=== PATIENT | female | born 1945 | race Two or more races ===

== ENCOUNTER 2019-10-15 12:25 | Emergency (ER) | payer OTHER ==
--- NOTE | 2019-10-15 12:30 | PDOC ---
History of Present Illness - General Chief Complaint: Pain, Acute Stated Complaint: ABD PAIN Time Seen by Provider: 10/15/19 12:27 History Source: Patient, [employer] Used Exam Limitations: Language Barrier (Azeri) - History of Present Illness Initial Comments: 10/15/19 12:29 Heena Fox is a Azeri-speaking 74F with PMH HTN, HLD, GERD, and left renal mass s/p biopsy reported non-cancerous presenting with left flank pain. Patient has been evaluated for a left renal mass over the last five months, was recently biopsied in early September, reports not cancer. Since then has had worse pain than normal. Pain is localized to left flank, worse in the morning, relieved with Tylenol. Today pain is worse than her normal but of the same character, pain rated 9.5/10 and down to 5/10 after Tylenol. Pain normally very responsive to Tylenol over the last few months. Denies chest pain, SOB, cough, fever, chills, nausea, vomiting, urinary sx, or diarrhea. Tolerating PO, eats mostly breakfast foods and coffee. Denies dysuria or hematuria. NKDA. No prior surgeries to her abdomen. Denies alcohol/drugs/tobacco use. Past History - Medical History Allergies/Adverse Reactions: Allergies Allergy/AdvReac Type Severity Reaction Status Date / Time No Known Allergies Allergy Verified 10/15/19 12:32 Home Medications: Ambulatory Orders Amlodipine Besylate [Norvasc -] 10 mg PO DAILY 10/15/19 Aspirin 81 mg PO DAILY 10/15/19 Atorvastatin Ca [Lipitor] 40 mg PO HS 10/15/19 Review of Systems - Review of Systems Able to Perform ROS?: Yes Constitutional: No: Symptoms Reported HEENTM: No: Symptoms Reported Respiratory: No: Symptoms reported Cardiac (ROS): No: Symptoms Reported ABD/GI: No: Constipated, Diarrhea, Nausea, Poor Appetite, Poor Fluid Intake, Vomiting : Yes: Flank Pain. No: Burning, Dysuria, Discharge, Frequency, Hematuria, Incontinence Musculoskeletal: No: Symptoms Reported Integumentary: No: Symptoms Reported Neurological: No: Symptoms reported Endocrine: No: Symptoms Reported Hematologic/Lymphatic: No: Symptoms Reported All Other Systems: Reviewed and Negative *Physical Exam - Physical Exam General Appearance: Yes: Nourished, Appropriately Dressed, Obese, Other (resting comfortably in bed in NAD, sitting up on her own). No: Apparent Distress HEENT: positive: EOMI, PIERRE, Normal Voice, Symmetrical, Pharynx Normal, Hearing Grossly Normal. negative: Scleral Icterus (R), Scleral Icterus (L), Muffled/Hoarse voice, Pharyngeal Erythema, Tonsillar Exudate Neck: positive: Normal Thyroid, Supple. negative: Tender, Rigid, Lymphadenopathy (R), Lymphadenopathy (L) Respiratory/Chest: positive: Lungs Clear, Normal Breath Sounds. negative: Chest Tender, Respiratory Distress, Accessory Muscle Use, Crackles, Rales, Rhonchi, Stridor, Wheezing Cardiovascular: positive: Regular Rhythm, Regular Rate Gastrointestinal/Abdominal: positive: Normal Bowel Sounds, Soft, Protuberent. negative: Tender, Organomegaly, Pulsatile Mass, Distended, Tenderness, Hernia Musculoskeletal: positive: Normal Inspection. negative: CVA Tenderness, CVA Tenderness (R), CVA Tenderness (L), Decreased Range of Motion, Vertebral Tenderness Extremity: positive: Normal Capillary Refill, Normal Inspection, Normal Range of Motion. negative: Tender, Pelvis Stable, Pedal Edema, Swelling, Calf Tenderness Integumentary: positive: Normal Color, Dry, Warm. negative: Diaphoresis Neurologic: positive: Fully Oriented, Alert, Normal Mood/Affect, Normal Response ED Treatment Course - LABORATORY CBC & Chemistry Diagram: 10/15/19 13:05 10/15/19 13:05 Medical Decision Making - Medical Decision Making 10/15/19 12:29 Patient has known history of left renal mass and flank pain responsive to Tylenol, here for worse pain than normal of the same character, relieved with Tylenol but would like evaluation. No other systemic symptoms, VSS, unremarkable physical exam. Mass already evaluated via biopsy and reportedly not malignant, but patient has more pain after biopsy. Evaluating for ACS vs. renal pathology via CMP/CBC/CP/ECG/CXR/UA/UC and renal US for repeat characterization of the mass and for possibly seroma/hematoma. 10/15/19 15:24 Labs notable for: - CBC WNL - CMP WNL - lipase WNL - CP WNL - UA 1+ LE, contaminated, no urinary symptoms, no other markers of infection ECG shows NSR with sinus arrhythmia, HR 66, QTc 413, no ARCADIO/D or TWI. CXR no acute pathology noted. 10/15/19 18:21 Pending US read. 10/15/19 18:36 US read shows morphologically normal kidneys and no evidence of hydronephrosis or acute pathology, with subcutaneous left flank mass without evidence of postbiopsy complication. Patient feeling better and in NAD. No pain medications given in ED, improved with patient's self-taken Tylenol before ED. No worsening pathology requiring admission or further treatment. Stable for discharge home with PMD and urology follow-up. Discharge - Discharge Information Problems reviewed: Yes Clinical Impression/Diagnosis: Left flank pain Condition: Improved Disposition: HOME - Admission No - Follow up/Referral Referrals: Jacoby Negro [Primary Care Provider] - Jose Elias Merida MD [Staff Physician] - - Patient Discharge Instructions Additional Instructions: Hoy te evaluaron por dolor en el costado. Alvarez dolor mejor con Tylenol, as que contine tomndolo keaton se indica en la etiqueta, jeri no ms de 2000 g por da. Alvarez fan y orina no muestran ningn problema. Alvarez ecografa no muestra ningn problema, alvarez masa renal es estable y no hay complicaciones que requieran tratamiento en lashon momento. Owen un seguimiento con alvarez urlogo y alvarez mdico habitual segn lo programado. En casa, si experimenta un empeoramiento del dolor , diarrea, dolor de pecho, fiebre o problemas para orinar, regrese a la bri de emergencias. Today you were evaluated for flank pain. Your pain improved with Tylenol, so please continue to take this as directed on the label, but no more than 2000g per day. Your blood and urine does not show any problems. Your ultrasound does not show any problems, your kidney mass is stable and there are no complications needing treatment at this time. Please follow-up with your urologist and your regular doctor as scheduled. At home, if you experience any worsening pain, diarrhea, chest pain, fevers, or have trouble urinating, please return to the emergency room. - Post Discharge Activity
[2019-10-15 12:35] VITALS: BMI 27.6
[2019-10-15 13:42] LABS: BASO % 1.3 % (0-2.0); EOS % 2.7 % (0-4.5); HEMATOCRIT 41.9 % (32.4-45.2); HEMOGLOBIN 13.4 GM/dL (10.7-15.3); LYMPH % 23.6 % (8-40); MCH 27.9 pg (25.7-33.7); MCHC 32.1 g/dl (32.0-36.0); MEAN CELL VOLUME 86.9 fl (80-96); MEAN PLT VOLUME 8.1 fl (7.5-11.1); MONO % 6.8 % (3.8-10.2); NEUT % 65.6 % (42.8-82.8); PLATELET COUNT 268 K/MM3 (134-434); RBC 4.81 M/mm3 (3.60-5.2); RDW 15.2 % (11.6-15.6); WHITE BLOOD COUNT 10.5 K/mm3 (4.0-10.0)
[2019-10-15 13:44] LABS: EPI CELLS 17 /uL (0-25.1); HYALINE CASTS 0 /uL (0-3.1); PH,URINE 7.5 (5.0-8.0); URINE APPEARANCE CLEAR; URINE BACTERIA 35 /uL (0-1359); URINE BILIRUBIN NEGATIVE (NEGATIVE); URINE COLOR YELLOW; URINE GLUCOSE (UA) NEGATIVE (NEGATIVE); URINE KETONE NEGATIVE (NEGATIVE); URINE LEUK ESTERASE 1+ (NEGATIVE); URINE NITRITE NEGATIVE (NEGATIVE); URINE PROTEIN NEGATIVE (NEGATIVE); URINE RBC 4 /uL (0-23.9); URINE UROBILINOGEN 0.2 mg/dL (0.2-1.0); URINE WBC 30 /uL (0-25.8)
[2019-10-15 14:31] LABS: ALBUMIN 3.8 g/dl (3.4-5.0); ALK PHOS 75 U/L (45-117); ANION GAP 7 MMOL/L (8-16); BILIRUBIN,TOTAL 0.4 mg/dL (0.2-1); BLOOD UREA NITROGEN 17.6 mg/dL (7-18); CALCIUM 8.9 mg/dL (8.5-10.1); CHLORIDE 110 mmol/L (98-107); CO2 26 mmol/L (21-32); CREATININE 0.7 mg/dL (0.55-1.3); LIPASE 164 U/L (73-393); POTASSIUM 4.3 mmol/L (3.5-5.1); SGOT/AST 15 U/L (15-37); SGPT/ALT 33 U/L (13-61); SODIUM 143 mmol/L (136-145); TOT PROT 7.1 g/dl (6.4-8.2)
[2019-10-15 14:37] LABS: GLUCOSE,RANDOM 92 mg/dL (74-106)
--- NOTE | 2019-10-15 15:28 | EKG ---
Test Reason : Blood Pressure : / mmHG Vent. Rate : 066 BPM Atrial Rate : 066 BPM P-R Int : 166 ms QRS Dur : 080 ms QT Int : 394 ms P-R-T Axes : 026 025 029 degrees QTc Int : 413 ms POOR DATA QUALITY, INTERPRETATION MAY BE ADVERSELY AFFECTED NORMAL SINUS RHYTHM WITH SINUS ARRHYTHMIA CANNOT RULE OUT ANTERIOR INFARCT , AGE UNDETERMINED ABNORMAL ECG NO PREVIOUS ECGS AVAILABLE Confirmed by KEYUR CHAN, CHANI ([id number]) on 10/15/2019 3:28:12 PM Referred By: Confirmed By:CHANI BAER MD
--- NOTE | 2019-10-15 15:52 | PDOC ---
Documentation entered by Sharri Ann SCRIBE, acting as scribe for Vinh Sow MD. Vinh Sow MD: This documentation has been prepared by the albinibeSeth Lincy, SCRIBE, under my direction and personally reviewed by me in its entirety. I confirm that the documentation accurately reflects all work, treatment, procedures, and medical decision making performed by me. Attending Attestation - Resident Resident Name: GentrybeverlyJoao - ED Attending Attestation I have performed the following: I have examined & evaluated the patient, The case was reviewed & discussed with the resident, I agree w/resident's findings & plan, Exceptions are as noted - HPI HPI: 10/15/19 13:33 The patient is a 74-year-old female with a past medical history significant for HTN, HLD, GERD, and benign renal mass (biopsy done early September) who presents to the emergency department with left flank pain. She was at her primary care doctor's office and mentioned this flank pain and was referred to the emergency department for evaluation. The patient reports the pain is worse in the morning, with relief noted with Tylenol. Denies abdominal pain. Denies fever, chills, nausea, vomiting, diarrhea, urinary symptoms. Denies sick contact. Denies leg swelling. Patient has appointment with surgery sscheduled in the next week. Allergies: NKA Social history: Denies the use of tobacco, alcohol, or recreational drugs. - Physicial Exam PE: 10/15/19 15:49 GENERAL: The patient is awake, alert, and fully oriented, Nontoxic - in no acute distress. HEAD: Normocephalic, atraumatic. LUNGS: Breath sounds equal, clear to auscultation bilaterally. No wheezes, no rhonchi, no rales. HEART: Regular rate and rhythm, normal S1 and S2 without murmur, rub or gallop. ABDOMEN: Soft, nontender, No guarding, no rebound. No CVA tenderness - Medical Decision Making 10/15/19 15:50 Well-appearing, suspect chronic flank pain. Feeling improved with Tylenol, no CVA tenderness no clinical signs of infection. She has a follow-up appointment with dora 10/15/19 18:45 her US negative for acute pathology pt fees improved will dc with outpatient fu return precautions were discussed Discharge - Discharge Information Problems reviewed: Yes Clinical Impression/Diagnosis: Left flank pain Condition: Improved Disposition: HOME - Follow up/Referral Referrals: Jacoby Negro [Primary Care Provider] - Jose Elias Merida MD [Staff Physician] - - Patient Discharge Instructions Additional Instructions: Hoy te evaluaron por dolor en el costado. Alvarez dolor mejor con Tylenol, as que contine tomndolo keaton se indica en la etiqueta, jeri no ms de 2000 g por da. Alvarez fan y orina no muestran ningn problema. Alvarez ecografa no muestra ningn problema, alvarez masa renal es estable y no hay complicaciones que requieran tratamiento en lashon momento. Owen un seguimiento con alvarez urlogo y alvarez mdico habitual segn lo programado. En casa, si experimenta un empeoramiento del dolor, diarrea, dolor de pecho, fiebre o problemas para orinar, regrese a la rbi de emergencias. Today you were evaluated for flank pain. Your pain improved with Tylenol, so please continue to take this as directed on the label, but no more than 2000g per day. Your blood and urine does not show any problems. Your ultrasound does not show any problems, your kidney mass is stable and there are no complications needing treatment at this time. Please follow-up with your urologist and your regular doctor as scheduled. At home, if you experience any worsening pain, diarrhea, chest pain, fevers, or have trouble urinating, please return to the emergency room. - Post Discharge Activity
[2019-10-15 17:58] VITALS: BP 143/76; PULSE 68; TEMP 98.4
== END 2019-10-15 18:52 | disposition home or self-care (01) ==
LOC: JER 12:25
DX: R10.9 Unspecified abdominal pain (principal)
CPT/HCPCS: 36415; 71045-TC-FY; 76775-TC; 80053; 81003; 82550; 83690; 84484; 85025; 87086; 93005; 93010; 99285-25

== ENCOUNTER 2019-11-24 04:29 | Day surgery (SDC) | payer OTHER ==
[2019-11-23 15:45] VITALS: BMI 30.5
--- OUTSIDE RECORDS SUMMARY | 2019-11-24 04:37 | XMS ---
:1945 Author Organization [facility] Care Team Providers Name Role Phone ALIN CHAN, VASU Unavailable Vicente Huber Unavailable [phone] HERMILA DECKER Unavailable Unavailable Debra Malave Unavailable OYEKOLA HUMAN RESOURCES MANAGER, MOBOLAJI Unavailable OYEKOLA HUMAN RESOURCES MANAGER, MOBOLAJI Unavailable OYEKOLA HUMAN RESOURCES MANAGER, MOBOLAJI Unavailable OYEKOLA HUMAN RESOURCES MANAGER, MOBOLAJI Unavailable AGYEPONG HUMAN RESOURCES MANAGER, ROMEO Unavailable AGYEPONG HUMAN RESOURCES MANAGER, ROMEO Unavailable Betty Lott Unavailable [phone] Crow Lott Unavailable [phone] Crow Lott Unavailable [phone] SIOMARA HUMAN RESOURCES MANAGER Unavailable SIOMARA HUMAN RESOURCES MANAGER Unavailable SIOMARA HUMAN RESOURCES MANAGER Unavailable CLAIRE PUENTES Unavailable Unavailable DAYAN SUTHERLAND Unavailable Unavailable JOSEPH Maria Unavailable Unavailable SIOMARA DOCKERY Unavailable Unavailable ARGENIS JACOB Unavailable Unavailable ROMAIN WAYNE Unavailable KADEN CHAN Unavailable Lorenza Linton MD Unavailable Unavailable Royer, Lorenza MD Unavailable Unavailable Royer, Lorenza MD Unavailable Unavailable Royer, Lorenza MD Unavailable Unavailable Royer, Lorenza MD Unavailable Unavailable Royer, Lorenza MD Unavailable Unavailable Royer, Lorenza MD Unavailable Unavailable Royer, Lorenza MD Unavailable Unavailable Royer, Lorenza MD Unavailable Unavailable Royer, Lorenza MD Unavailable Unavailable Royer, Lorenza MD Unavailable Unavailable Royer, Lorenza MD Unavailable Unavailable Ryoer, Lorenza MD Unavailable Unavailable Royer, Lorenza MD Unavailable Unavailable Royer, Lorenza MD Unavailable Unavailable ZUNASSIGNED Unavailable Unavailable Mello Unavailable ZUNASSIGNED@, Unavailable Unavailable Re-disclosure Warning The records that you are about to access may contain information from federally- assisted alcohol or drug abuse programs. If such information is present, then the following federally mandated warning applies: This information has been disclosed to you from records protected by federal confidentiality rules (42 CFR part 2). The federal rules prohibit you from making any further disclosure of this information unless further disclosure is expressly permitted by the written consent of the person to whom it pertains or as otherwise permitted by 42 CFR part 2. A general authorization for the release of medical or other information is NOT sufficient for this purpose. The Federal rules restrict any use of the information to criminally investigate or prosecute any alcohol or drug abuse patient.The records that you are about to access may contain highly sensitive health information, the redisclosure of which is protected by Article 27-F of the [place] State Public Health law. If you continue you may haveaccess to information: Regarding HIV / AIDS; Provided by facilities licensed or operated by the [facility] Office of Mental Health; or Provided by the [facility] Office for People With Developmental Disabilities. If such information is present, then the following [facility] mandated warning applies: This information has been disclosed to you from confidential records which are protected by state law. State law prohibits you from making any further disclosure of this information without the specific written consent of the person to whom it pertains, or as otherwise permitted by law. Any unauthorized further disclosure in violation of state law may result in a fine or halfway sentence or both. A general authorization for the release of medical or other information is NOT sufficient authorization for further disclosure. Allergies and Adverse Reactions Type Description Substance Reaction Status Data Source(s ) Allergy to No Known Allergies No known GREENW AY ([place] substance allergies [place] ([facility]) Allergy to No Known Allergies No known GREENW AY ([place] substance allergies [place] ([facility]) Allergy to No Known Allergies No known GREENW AY ([place] substance allergies [facility]) Allergy to No Known Allergies No known GREENW AY ([place] substance allergies [facility]) Allergy to No Known Allergies No known GREENW AY ([place] substance allergies [place] ([facility]) Allergy to No Known Allergies No known GREENW AY ([place] substance allergies [place] ([facility]) Allergy to No Known Allergies No known GREENW AY ([place] substance allergies [place] ([facility]) Allergy to No Known Allergies No known GREENW AY ([place] substance allergies [place] ([facility]) Allergy to No Known Allergies No known GREENW AY ([place] substance allergies [place] ([facility]) Allergy to No Known Allergies No known GREENW AY ([place] substance allergies [facility]) Allergy to No Known Allergies No known GREENW AY ([place] substance allergies [place] ([facility]) Allergy to No Known Allergies No known GREENW AY ([place] substance allergies [facility]) Allergy to No Known Allergies No known GREENW AY ([place] substance allergies [place] ([facility]) Allergy to No Known Allergies No known GREENW AY ([place] substance allergies [place] ([facility]) Allergy to No Known Allergies No known GREENW AY ([place] substance allergies [place] ([facility]) Allergy to No Known Allergies No known GREENW AY ([place] substance allergies [place] ([facility]) Allergy to No Known Allergies No known GREENW AY ([place] substance allergies [place] ([facility]) Allergy to No Known Allergies No known GREENW AY ([place] substance allergies [place] ([facility]) Allergy to No Known Allergies No known GREENW AY ([place] substance allergies [place] ([facility]) Allergy to No Known Allergies No known GREENW AY ([place] substance allergies [place] ([facility]) Allergy to No Known Allergies No known GREENW AY ([place] substance allergies [place] ([facility]) Allergy to No Known Allergies No known GREENW AY ([place] substance allergies [place] ([facility]) Allergy to No Known Allergies No known GREENW AY ([place] substance allergies [place] ([facility]) Allergy to No Known Allergies No known GREENW AY ([place] substance allergies [place] ([facility]) Allergy to No Known Allergies No known GREENW AY ([place] substance allergies [facility]) Allergy to No Known Allergies No known GREENW AY ([place] substance allergies [facility]) Allergy to No Known Allergies No known GREENW AY ([place] substance allergies [facility]) Allergy to No Known Allergies No known GREENW AY ([place] substance allergies [facility]) Allergy to No Known Allergies No known GREENW AY ([place] substance allergies [place] ([facility]) Allergy to No Known Allergies No known GREENW AY ([place] substance allergies [facility]) Allergy to No Known Allergies No known GREENW AY ([place] substance allergies [facility]) Allergy to No Known Allergies No known GREENW AY ([place] substance allergies [facility]) Allergy to No Known Allergies No known GREENW AY ([place] substance allergies [facility]) Allergy to No Known Allergies No known GREENW AY ([place] substance allergies [facility]) Allergy to No Known Allergies No known GREENW AY ([place] substance allergies [place] ([facility]) Propensity to Propensity to Propensity to NEXTG EN ([facility] adverse reactions adverse reactions adverse [facility] (disorder) (disorder) reactions Center) (disorder) No Known No Known Allergies No Known eCW1 ( [facility]) Encounters Encounter Providers Location Date Indications Data Source(s ) [facility]: [facility] er dmitter: 10:19:0 ZUNASSIGNEDR 0 AM eferrer: EDT [id number] ZUNASSIGNED@ , Outpatient Attender: [facility] [address] DAYAN GUARDADO 10:08:0 MARTINAdmitt 0 AM er: ROSITA EDT DAYAN GUARDADO KOKOReferr er: ROSITA SUTHERLAND Attender: NEXTGEN ([address] 10:08:0 Medical 0 AM Center) EDT - 020 10:08:0 0 AM EDT Outpatient [address] eCW1 ([address] 12:00:0 Medical 0 AM Practice PC) EDT Outpatient Admitter: [facility] [id number] [address] [place] [address] ZUNASSIGNED@ 12:00:0 ,Referrer: 0 AM [id number] EDT ZUNASSIGNED@ , Outpatient Attender: [facility] HERMILA CASTELLANOS [address] [place] [address] JAMESAdmitte 03:18:0 r: HERMILA CASTELLANOS 0 PM HERMILAReferre EDT r: HERMILA CLEANING OutpatientOFFIC Attender: Family NEXTGEN ( [facility] E/OUTPATIENT [address] VISIT, [facility] 03:18:0 Medical 0 PM Center) EDT - 020 03:18:0 0 PM EDT Outpatient [address] 11:41:0 0 AM EDT Outpatient Attender: [address] SIOMARA 10:53:0 GIFTYAdmitte 0 AM r: SARKIS EDT SIOMARA GIFTYReferre r: SARKIS SIOMARA SARKIS Outpatient [address] 12:00:0 0 AM EDT Outpatient Attender: [facility] HERMILA CASTELLANOS [address] [place] [address] JAMESAdmitte 01:11:0 r: HERMILA CASTELLANOS 0 PM JAMESReferre EDT r: HERMILA CLEANING OutpatientOFFIC Attender: [facility] ( [facility] E/OUTPATIENT [address] VISIT, [facility] 01:11:0 Medical 0 PM Center) EDT - 020 01:11:0 0 PM EDT Outpatient [address] 11:48:0 0 AM EDT Outpatient [address] 12:00:0 0 AM EDT Outpatient<td Attender: Osvaldo RANJEET ID="encounterTy Debra [facility] 020 ([place] Ve rnon peDescriptionID [facility] 12:07:0 Neighborh ood 0">PATIENT Center 0 Health Center) ADVOCACY</td><t EDT - d>Debra Malave</td><td 020 >Osvaldo 11:59:0 Community 0 [facility] EDT Center</td><td> 08/28/2019</td> <td></td> Outpatient<td Attender: Osvaldo RANJEET ID="encounterTy [facility] 020 ([facility] 10:19:0 Neighborh ood 1">PATIENT Center 0 AM Health Center) ADVOCACY</td><t EDT - d>Debra Malave</td><td 020 >Osvaldo 11:59:0 Community 0 [facility] EDT Center</td><td> 08/26/2019</td> <td></td> Outpatient [address] 09:51:0 0 AM EDT Outpatient [address] 12:00:0 0 AM EDT Outpatient<td Attender: Osvaldo RANJEET ID="encounterTy SARKIS [facility] 020 ([place] Ve rnon peDescriptionID [facility] 01:54:0 Neighbo rhood 2">*Phone*</td> Center 0 Health nter) <td>SARKIS EDT - SIOMARA HUMAN RESOURCES MANAGER</td><td>Norman Samir eddie Community 11:59:0 Health [facility] Center</td><td> EDT 08/25/2019</td> <td></td> Outpatient<td Attender: Osvalod RANJEET ID="encounterTy Debra [facility] 020 ([place] Ve rnon peDescriptionID [facility] 03:23:0 Neighborh ood 3">PATIENT Center 0 PM Health Center) ADVOCACY</td><t EDT - d>Debra Malave</td><td 020 >Osvaldo 11:59:0 Community 0 PM Health EDT Center</td><td> 08/06/2019</td> <td></td> Outpatient<td Attender: Osvaldo RANJEET ID="encounterTy SARKIS [facility] 020 ([place] Ve rnon peDescriptionID SIOMARA FNP Health 11:37:0 Neighbo rhood 4">*Phone*</td> Center 0 AM Health Ce nter) <td>SARKIS EDT - SIOMARA HUMAN RESOURCES MANAGER</td><td>Yon 020 [facility] 11:59:0 Health 0 PM Center</td><td> EDT 08/03/2019</td> <td></td> Outpatient<td Attender: Osvaldo RANJEET ID="encounterTy SARKIS [facility] 020 ([place] Ve rnon peDescriptionID SIOMARA FNP Health 11:06:0 Neighbo rhood 5">*No Center 0 AM Health Center) Show*</td><td>G EDT - IFTY SIOMARA HUMAN RESOURCES MANAGER</td><td>Yon 020 [facility] 11:59:0 Health 0 PM Center</td><td> EDT 07/23/2019</td> <td></td> Outpatient<td Attender: Osvaldo RANJEET ID="encounterTy SARKIS [facility] 020 ([place] Ve rnon peDescriptionID SIOMARA [facility] Health 09:00:0 Neighbo rhood 6">WALKINS</td> Center 0 AM Health Ce nter) <td>SARKIS EDT - SIOMARA HUMAN RESOURCES MANAGER</td><td>Yon 020 [facility] 10:05:1 Health 8 AM Center</td><td> EDT 07/20/2019</td> <td></td> Outpatient<td Attender: Osvaldo [place] ID="encounterTy Debra [facility] 020 ([facility] Barbara de la cruz peDescriptionAK [facility] 01:55:0 Neighborh ood 7">PATIENT Center 0 PM Health Center) ADVOCACY</td><t EDT - d>Debra Malave</td><td 020 >[place] 11:59:0 Community 0 PM Health EDT Center</td><td> 07/16/2019</td> <td></td> Outpatient<td Attender: Osvaldo Preventive Med [facility] ID="encounterTy [facility] 020 Standardized Depress ion ([place] peDescriptionAK [facility] 03:00:0 Screening: Positiv e For Neighborhood 8">COMPLETE Center 0 PM SymptomsQuestionnaires H ealth Center) PHYSICAL EDT - Phq-9 Quick Depression EXAM</td><td>GI Assessment FTY SIOMARA 020 PanelOverweightHepatic HUMAN RESOURCES MANAGER</td><td>[place] 02:40:1 CystIntrathoracic Or tulio kers [facility] 8 PM Imaging Health EDT AbnormalityRoutine Center</td><td> Pre-employment Lakia villarreal 05/11/2019</td> ExaminationPreventiv e Med <td><content Standardized Depression ID="encounterDi Screening: Positive For agnosisID8-0">R SymptomsQuestionnair es outine Phq-9 Quick Depression Pre-employment Assessment Screening PanelOverweightHepatic Examination</co CystIntrathoracic Or tulio ntent>, Imaging <content AbnormalityRoutine ID="encounterDi Pre-employment Screagata villarreal agnosisID8-1">I ExaminationPreventiv e Med ntrathoracic Standardized Depression Organ Imaging Screening: Positive Fo r Abnormality</co SymptomsQuestionnair es ntent>, Phq-9 Quick Depression <content Assessment ID="encounterDi PanelOverweightHepat ic agnosisID8-2">H CystIntrathoracic Or tulio epatic Imaging Cyst</content>, AbnormalityRoutine <content Pre-employment Screening ID="encounterDi ExaminationPreventiv e Med agnosisID8-3">O Standardized Depress ion verweight</cont Screening: Positive For ent>, <content SymptomsQuestionnaire s ID="encounterDi Phq-9 Quick Depressi on agnosisID8-4">Q Assessment uestionnaires PanelOverweightHepatic Phq-9 Quick CystIntrathoracic Organ Depression Imaging Assessment AbnormalityRoutine Panel</content> Pre-employment Screagata villarreal , <content ExaminationPreventive Med ID="encounterDi Standardized Depress ion agnosisID8-5">P Screening: Positive For reventive Med SymptomsQuestionnaires Standardized Phq-9 Quick Depression Depression Assessment Screening: PanelOverweightHepatic Positive For CystIntrathoracic Organ Symptoms</gina Imaging nt></td> AbnormalityRoutine Pre-employment Screening ExaminationPreventive Med Standardized Depression Screening: Positive For SymptomsQuestionnaires Phq-9 Quick Depression Assessment PanelOverweightHepatic CystIntrathoracic Organ Imaging AbnormalityRoutine Pre-employment Screening ExaminationPreventive Med Standardized Depression Screening: Positive For SymptomsQuestionnaires Phq-9 Quick Depression Assessment PanelOverweightHepatic CystIntrathoracic Organ Imaging AbnormalityRoutine Pre-employment Screening ExaminationPreventive Med Standardized Depression Screening: Positive For SymptomsQuestionnaires Phq-9 Quick Depression Assessment PanelOverweightHepatic CystIntrathoracic Organ Imaging AbnormalityRoutine Pre-employment Screening ExaminationPreventive Med Standardized Depression Screening: Positive For SymptomsQuestionnaires Phq-9 Quick Depression Assessment PanelOverweightHepatic CystIntrathoracic Organ Imaging AbnormalityRoutine Pre-employment Screening Examination Preventive Med Standardized Depression S creening: Positive For Symptoms Questionnaires Phq-9 Quick Depression As sessment Panel Overweight Hepatic Cyst Intrathoracic Organ Imaging Abnormality Routine Pre-employment Screening Examina tion Preventive Med Standardized Depression S creening: Positive For Symptoms Questionnaires Phq-9 Quick Depression As sessment Panel Overweight Hepatic Cyst Intrathoracic Organ Imaging Abnormality Routine Pre-employment Screening Examina tion Preventive Med Standardized Depression S creening: Positive For Symptoms Questionnaires Phq-9 Quick Depression As sessment Panel Overweight Hepatic Cyst Intrathoracic Organ Imaging Abnormality Routine Pre-employment Screening Examina tion Preventive Med Standardized Depression S creening: Positive For Symptoms Questionnaires Phq-9 Quick Depression As sessment Panel Overweight Hepatic Cyst Intrathoracic Organ Imaging Abnormality Routine Pre-employment Screening Examina tion Preventive Med Standardized Depression S creening: Positive For Symptoms Questionnaires Phq-9 Quick Depression As sessment Panel Overweight Hepatic Cyst Intrathoracic Organ Imaging Abnormality Routine Pre-employment Screening Examina tion Preventive Med Standardized Depression S creening: Positive For Symptoms Questionnaires Phq-9 Quick Depression As sessment Panel Overweight Hepatic Cyst Intrathoracic Organ Imaging Abnormality Routine Pre-employment Screening Examina tion Preventive Med Standardized Depression S creening: Positive For Symptoms Questionnaires Phq-9 Quick Depression As sessment Panel Overweight Hepatic Cyst Intrathoracic Organ Imaging Abnormality Routine Pre-employment Screening Examina tion Preventive Med Standardized Depression S creening: Positive For Symptoms Questionnaires Phq-9 Quick Depression As sessment Panel Overweight Hepatic Cyst Intrathoracic Organ Imaging Abnormality Routine Pre-employment Screening Examina tion Preventive Med Standardized Depression S creening: Positive For Symptoms Questionnaires Phq-9 Quick Depression As sessment Panel Overweight Hepatic Cyst Intrathoracic Organ Imaging Abnormality Routine Pre-employment Screening Examina tion Outpatient<td Attender: Osvaldo 05/11/2019 RANJEET ID="en[id number]">PATIENT [facility] 09:02: 00 AM ([facility]</td><[facility]td><td>[facility] 2019 Health Center</td><td>05/11/2019</td><td></td> 11:59:0 0 PM Center) EDT Outpatient<td Attender: Osvaldo 05/08/2019 RANJEET ID="[id number]">PATIENT [facility] 11:42 :00 AM (Orqis Medical [facility]</td><[facility]</td><td>[facility] 2019 Health Center</td><td>05/08/2019</td><td></td> 11:59:0 0 PM Center) EDT Outpatient<td Attender: Osvaldo 05/04/2019 RANJEET ID="[id number]">*[facility] 10:36 :00 AM ([facility]*</td><td>[facility] EDT - Neighborhood HUMAN RESOURCES MANAGER</td[facility] Center</td><td>05/04/2019</td><td></td> 11:59:0 0 PM Center) EDT Attender: [facility] 04/13/2019 [facility] 04:28:00 PM ([facility] 04/13/2019 Medical 04:28:00 PM Center) EST Outpatient Attender: 04/03/2019 [facility] Elizabeth HERNÁNDEZ 07:58:00 AM [facility] [place] TOMASHERNÁNDEZ 04/03/2019 MAdmitter: 12:26:00 PM WAIALUA [facility]EM[facility] [place] HERNÁNDEZ MReferrer: BETTY Maria Attender: 04/03/2019 [facility] Betty 07:58:00 AM ([facility] 04/03/2019 Medical 07:58:00 AM Center) EST Outpatient Admitter: 04/03/2019 [facility] Elizabeth HERNÁNDEZ 06:53:00 AM [facility] [place] Maria Outpatient<td Attender: Osvaldo 03/25/2019 [place] ID="[id number]">*[facility] 02:41: 00 PM ([place] Update*</td><td>[facility] EST [facility]</td><td>[facility] 03/25/2019 Health Center</td><td>03/25/2019</td><td></td> 11:59:0 0 PM Center) EST Outpatient Attender: 03/25/2019 [facility]DE[facility] 01:31:00 PM [facility] [place] HERNÁNDEZ MAdmitter: BETTY Maria OutpatientOFFICE/OUTPATIENT VISIT, NEW Attender: [facility] 03/25/19 DOMI Hernández 01:31:00 PM ([facility] 03/25/2019 Medical 01:31:00 PM Center) EST Outpatient<td Attender: Osvaldo 03/25/2019 [place] ID="[id number]">PATIENT [facility] 11:45 :00 AM (Kathya Lujan ADVOCACY</td><td>[facility] EST - [facility]</td><td>[facility] 2019 Health Center</td><td>03/25/2019</td><td></td> 11:59:0 0 PM Center) EST Outpatient<td Attender: Osvaldo 03/25/2019 [place] ID="[id number]">LOUANN [facility] 09:15 :00 AM r (Kathya Lujan </td><td>[facility] EST - [facility] HUMAN RESOURCES MANAGER</td><td>[facility] HUMAN RESOURCES MANAGER Center 03/25/2019 Health Center</td><td>03/25/2019</td><td><conten 10:38 :01 AM r Center) t EST a ID="[id number]">Prediabetes l </content>, <content g ID="[id number]">Arthralgia i - Hand</content></td> a - H a n d A r t h r a l g i a - H a n d A r t h r a l g i a - H a n d A r t h r a l g i a - H a n d A r t h r a l g i a - H a n d A r t h r a l g i a - H a n d A r t h r a l g i a - H a n d A r t h r a l g i a - H a n d A r t h r a l g i a - H a n d A r t h r a l g i a - H a n d A r t h r a l g i a - H a n d A r t h r a l g i a - H a n d A r t h r a l g i a - H a n d A r t h r a l g i a - H a n d P r e d i a b e t e s P r e d i a b e t e s P r e d i a b e t e s P r e d i a b e t e s P r e d i a b e t e s P r e d i a b e t e s P r e d i a b e t e s P r e d i a b e t e s P r e d i a b e t e s P r e d i a b e t e s P r e d i a b e t e s P r e d i a b e t e s P r e d i a b e t e s P r e d i a b e t e s Arthralgia - Hand Arthralgia - Hand Arthralgia - Hand Arthralgia - Hand Arthralgia - Hand Arthralgia - Hand Arthralgia - Hand Arthralgia - Hand Arthralgia - Hand Arthralgia - Hand Arthralgia - Hand Arthralgia - Hand Arthralgia - Hand Arthralgia - Hand Prediabetes Prediabetes Prediabetes Prediabetes Prediabetes Prediabetes Prediabetes Prediabetes Prediabetes Prediabetes Prediabetes Prediabetes Prediabetes Prediabetes Outpatient<td Attender: Osvaldo 03/17/2019 RANJEET ID="[id number]">*No [facility] 03:38:00 PM (Kathya Lujan Show*</td><td>[facility]</td><td>[facility] 03/17/19 20 Health Center</td><td>03/17/2019</td><td></td> 11:59:0 0 PM [place]) EST Outpatient<td Attender: Osvaldo 03/16/2019 [place] ID="[id number]">*[facility] 01:06: 00 PM (Kathya Lujan [facility]*</td><td>[facility] HUMAN RESOURCES MANAGER</td><td>[facility] HUMAN RESOURCES MANAGER Center 03/16/2019 Health Center</td><td>03/16/2019</td><td></td> 11:59:0 0 PM Center) EST Outpatient<td Attender: Osvaldo 03/10/2019 [place] ID="[id number]">[facility] 10:56: 00 AM (Kathya Lujan T ADVOCACY</td><td>[facility] EST - Neighborhood [place]</td><td>[facility] 2019 Health Center</td><td>03/10/2019</td><td></td> 11:59:0 0 PM Center) EST Outpatient<td Attender: Ovsaldo 03/10/2019 P [place] ID="[id number]">[facility] 10:30: 00 AM r (Kathya Lujan VISIT</td><td>[facility] EST - e Neighborhood HUMAN RESOURCES MANAGER</td><td>[facility] HUMAN RESOURCES MANAGER Center 03/10/2019 d Health Center</td><td>03/10/2019</td><td><gina 11:50: 59 AM i Center) nt EST a ID="[id number]">Arthralgia b - Shoulder Region</content>, <content e ID="[id number]">Overweight t </content>, <content e ID="[id number]">Prediabete s s</content></td> O v e r w e i g h t A r t h r a l g i a - S h o u l d e r R e g i o n P r e d i a b e t e s O v e r w e i g h t A r t h r a l g i a - S h o u l d e r R e g i o n P r e d i a b e t e s O v e r w e i g h t A r t h r a l g i a - S h o u l d e r R e g i o n P r e d i a b e t e s O v e r w e i g h t A r t h r a l g i a - S h o u l d e r R e g i o n P r e d i a b e t e s O v e r w e i g h t A r t h r a l g i a - S h o u l d e r R e g i o n P r e d i a b e t e s O v e r w e i g h t A r t h r a l g i a - S h o u l d e r R e g i o n P r e d i a b e t e s O v e r w e i g h t A r t h r a l g i a - S h o u l d e r R e g i o n P r e d i a b e t e s O v e r w e i g h t A r t h r a l g i a - S h o u l d e r R e g i o n P r e d i a b e t e s O v e r w e i g h t A r t h r a l g i a - S h o u l d e r R e g i o n P r e d i a b e t e s O v e r w e i g h t A r t h r a l g i a - S h o u l d e r R e g i o n P r e d i a b e t e s O v e r w e i g h t A r t h r a l g i a - S h o u l d e r R e g i o n P r e d i a b e t e s O v e r w e i g h t A r t h r a l g i a - S h o u l d e r R e g i o n P r e d i a b e t e s O v e r w e i g h t A r t h r a l g i a - S h o u l d e r R e g i o n P r e d i a b e t e s O v e r w e i g h t A r t h r a l g i a - S h o u l d e r R e g i o n P r e d i a b e t e s O v e r w e i g h t A r t h r a l g i a - S h o u l d e r R e g i o n P r e d i a b e t e s O v e r w e i g h t A r t h r a l g i a - S h o u l d e r R e g i o n P r e d i a b e t e s O v e r w e i g h t A r t h r a l g i a - S h o u l d e r R e g i o n P r e d i a b e t e s O v e r w e i g h t A r t h r a l g i a - S h o u l d e r R e g i o n P r e d i a b e t e s O v e r w e i g h t A r t h r a l g i a - S h o u l d e r R e g i o n Prediabetes Overweight Arthralgia - Shoulder Region Prediabetes Overweight Arthralgia - Shoulder Region Prediabetes Overweight Arthralgia - Shoulder Region Prediabetes Overweight Arthralgia - Shoulder Region Prediabetes Overweight Arthralgia - Shoulder Region Prediabetes Overweight Arthralgia - Shoulder Region Prediabetes Overweight Arthralgia - Shoulder Region Prediabetes Overweight Arthralgia - Shoulder Region Prediabetes Overweight Arthralgia - Shoulder Region Prediabetes Overweight Arthralgia - Shoulder Region Prediabetes Overweight Arthralgia - Shoulder Region Prediabetes Overweight Arthralgia - Shoulder Region Prediabetes Overweight Arthralgia - Shoulder Region Prediabetes Overweight Arthralgia - Shoulder Region Prediabetes Overweight Arthralgia - Shoulder Region Prediabetes Overweight Arthralgia - Shoulder Region Prediabetes Overweight Arthralgia - Shoulder Region Prediabetes Overweight Arthralgia - Shoulder Region Prediabetes Overweight Arthralgia - Shoulder Region Outpatient Attender: CECIL Cordova 03/10/2019 [facility] 08:52:00 AM Medical DANUTAAdmitter: EST [place] CECIL ARGENIS DANUTAReferrer: OMAR PUENTES Outpatient< Attender: Debra Riley 03/06/2019 [facility] 11:05:00 AM (Kathya Lujan ID[facility]2019 Health [id number]" 11:59:00 PM Center) >PATIENT EST ADVOCACY</t d><td>Debra Malave</td ><td>[facility]</td> <td> 020</td><td ></td> Outpatient< Attender: ROMEO Riley 03/06/2019 OverweightLimb Pain RANJEET td AGYEPONG HUMAN RESOURCES MANAGER [facility] 09:45:00 AM FootLumbagoOverweightL im ([facility] ID="[facility] EST - b Pain Neighborhood [facility] 03/06/2019 FootLumbagoOverweightLim Health [id number]" 09:43:58 AM b Pain Center) >WALKINS</t EST FootLumbagoOverweightLim d><td>[facility]enifer [facility] FootLumbagoOverweightLim [facility]</td><td b Pain >[place] FootLumbagoOverweightLim [facility] b Pain Health FootLumbagoOverweightLim [place]</td> b Pain <td> FootLumbagoOverweightLim 020</td><td b Pain ><content FootLumbagoOverweightLim ID="encount b Pain erDiagnosis FootLumbagoOverweightLim ID20-0">Lum b Pain bago</gina FootLumbagoOverweightLim nt>, b Pain <content FootLumbagoOverweightLim ID="encount b Pain erDiagnosis FootLumbagoOverweightLim ID20-1">Felix b Pain b Pain FootLumbagoOverweightLim Foot</gina b Pain nt>, FootLumbagoOverweightLim <content b Pain ID="encount FootLumbagoOverweightLim erDiagnosis b Pain ID20-2">Ove FootLumbagoOverweightLim rweight</co b Pain ntent></td> FootLumbagoOverweightLim b Pain FootLumbagoOverweightLim b Pain FootLumbagoOverweightLim b Pain FootLumbagoOverweightLim b Pain FootLumbago Overweight Limb Pain Foot [place]umbago Overweight Limb Pain Foot [place] Overweight Limb Pain Foot [place] Overweight Limb Pain Foot [place] Overweight Limb Pain Foot [place] Overweight Limb Pain Foot [place] Overweight Limb Pain Foot [place] Overweight Limb Pain Foot [place] Overweight Limb Pain Foot [place] Overweight Limb Pain Foot [place]umb[place] Overweight Limb Pain Foot [place]umb[place] Overweight Limb Pain Foot [place] Overweight Limb Pain Foot [place]umb[place] Overweight Limb Pain Foot [place]umb[place] Overweight Limb Pain Foot [place]umbago Overweight Limb Pain Foot [place]umbago Overweight Limb Pain Foot [place]umbago Overweight Limb Pain Foot [place]umb[place] Overweight Limb Pain Foot Lumbago Overweight Limb Pain Foot Lumbago Overweight Limb Pain Foot Lumbago Outpatient<td Attender: Osvaldo 03/05/2019 [place] ID="[id number]">*OUTREACH*</td><td>[facility] 01:52:00 PM ([facility]</td><td>[facility]</td><td>03/05/2019</td><td></td> HUMAN RESOURCES MANAGERFormerly [facility] [address] [place] [address] 11:59:00 PM Center) EST Outpatient<td ID="[id number]">Regular Attender : Osvaldo 03/03/2019 [place] Sonogram</td><td>FARZANA ALFONSO MD</td><td>[facility] 09:00:00 AM ([facility]</td><td>03/03/2019</td><td></td> KADEN CHAN [facility] 03/03/2019 Health 10:36:03 AM Center) EST Outpatient<td Attender: Osvaldo 03/02/2019 [place] ID="[id number]">*OUTREACH*</td><td>[facility] 11:36:00 AM ([facility]</td><td>[facility]</td><td>03/02/2019</td><td></td> HUMAN RESOURCES MANAGERFormerly [facility] [address] [place] [address] 11:59:00 PM Center) EST Outpatient<td ID="[id number]">PATIENT Attender : Osvaldo 02/25/2019 RANJEET ADVOCACY</td><[facility]td>[facility] 10:53:00 AM ([facility]</td><td>02/25/2019</td><td></td> [facility] EST - Neighborhood Center 02/25/2019 Health 11:59:00 PM [place]) EST Outpatient<td ID="[id number]">OFFICE Attender: Osvaldo 02/25/2019 A RANJEET VISIT</td><td[facility] HUMAN RESOURCES MANAGER</td><td>[facility] 09:30:00 AM b ([facility]</td><td>02/25/2019</td><td><[facility] EST - Neighborhood ID="[id number]">Abdominal Pain</content></td> HUMAN RESOURCES MANAGER Center 02/25/2019 o Health 10:30:52 AM [facility]) EST i n a l P a i n A b d o m i n a l P a i n A b d o m i n a l P a i n A b d o m i n a l P a i n A b d o m i n a l P a i n A b d o m i n a l P a i n A b d o m i n a l P a i n A b d o m i n a l P a i n A b d o m i n a l P a i n A b d o m i n a l P a i n A b d o m i n a l P a i n A b d o m i n a l P a i n A b d o m i n a l P a i n A b d o m i n a l P a i n A b d o m i n a l P a i n A b d o m i n a l P a i n A b d o m i n a l P a i n A b d o m i n a l P a i n A b d o m i n a l P a i n A b d o m i n a l P a i n A b d o m i n a l P a i n A b d o m i n a l P a i n A b d o m i n a l P a i n A b d o m i n a l P a i n Abdominal Pain Abdominal Pain Abdominal Pain Abdominal Pain Abdominal Pain Abdominal Pain Abdominal Pain Abdominal Pain Abdominal Pain Abdominal Pain Abdominal Pain Abdominal Pain Abdominal Pain Abdominal Pain Abdominal Pain Abdominal Pain Abdominal Pain Abdominal Pain Abdominal Pain Abdominal Pain Abdominal Pain Abdominal Pain Abdominal Pain Abdominal Pain Outpatient<td Attender: Osvaldo 02/03/2019 RANJEET ID="[id number]">PATIENT [facility] 11:29 :00 AM (Kathya Lujan ADVOCACY</td><td>[facility] EST - [facility]</td><td>[facility] 2018 Health Center</td><td>02/03/2019</td><td></td> 11:59:0 0 PM Center) EST Outpatient<td Attender: Osvaldo 02/03/2019 A [place] ID="[id number]">OFFICE [facility] 10:00: 00 AM r (Kathya Lujan VISIT</td><td>[facility] EST - [facility] HUMAN RESOURCES MANAGER</td><td>[facility] HUMAN RESOURCES MANAGER Center 02/03/2019 Health Center</td><td>02/03/2019</td><td><content 10:2 1:33 AM r Center) ID="[id number]">Arthralgia</ EST a content></td> l g i a A r t h r a l g i a A r t h r a l g i a A r t h r a l g i a A r t h r a l g i a A r t h r a l g i a A r t h r a l g i a A r t h r a l g i a A r t h r a l g i a A r t h r a l g i a A r t h r a l g i a A r t h r a l g i a A r t h r a l g i a A r t h r a l g i a A r t h r a l g i a A r t h r a l g i a A r t h r a l g i a A r t h r a l g i a A r t h r a l g i a A r t h r a l g i a A r t h r a l g i a A r t h r a l g i a A r t h r a l g i a A r t h r a l g i a A r t h r a l g i a A r t h r a l g i a A r t h r a l g i a Arthralgia Arthralgia Arthralgia Arthralgia Arthralgia Arthralgia Arthralgia Arthralgia Arthralgia Arthralgia Arthralgia Arthralgia Arthralgia Arthralgia Arthralgia Arthralgia Arthralgia Arthralgia Arthralgia Arthralgia Arthralgia Arthralgia Arthralgia Arthralgia Arthralgia Arthralgia Arthralgia Outpatient<td Attender: Osvaldo 01/27/2019 PrediabetesPrediabetesPrediabetesPrediabetesPrediabetesPrediabetesPrediabetesPre diabetesPrediabetesPrediabetesPrediabetesPrediabetesPrediabetesPrediabetesPredia betesPrediabetesPrediabetesPrediabetesPr ediabetesGastritisFatigueAlopeciaGastritisFatigueA [place] ID="[id number]">WALKINS</td><td>[facility] 12:30:00 PM lopeciaGastritisFatigueAlopeciaGastritisFatigueAlopeciaGastritisFatigueAlopeciaG astritisFatigueAlopeciaGastritisFatigueAlopeciaGastritisFatigueAlopeciaGastritis FatigueAlopeciaGastritisFatigueAlopeciaG astritisFatigueAlopeciaGastritisFatigueAlopeciaGas ([facility] HUMAN RESOURCES MANAGER</td><td>[facility] EST - tritisFatigueAlopeciaGastritisFatigueAlopeciaGastritisFatigueAlopeciaGastritisFa GastritisFatigueAlopeciaPrediabetesGastritisFatigu Neighborhood Center</td><td>01/27/2019</td><td><content HUMAN RESOURCES MANAGER Center 01/27/2019 eAlopeciaPrediabetesGastritisFatigueAlopeciaPrediabetesGastritisFatigueAlopeciaP itisFatigueAlopeciaPrediabetesGastritisFatigueAlop Health ID="[id number]">Prediabetes</content>, 01:51:06 PM eciaPrediabetesGastritisFatigueAlopeciaPrediabetesHyperlipidemiaHyperlipidemiaHy emiaHyperlipidemiaHyperlipidemiaHyperlipidemiaHype [place]) <content EST rlipidemiaHyperlipidemiaHyperlipidemiaHyperlipidemiaHyperlipidemiaHyperlipidemia HyperlipidemiaHyperlipidemiaHyperlipidemiaHyperlipidemiaHyperlipidemiaHyperlipid emiaHyperlipidemiaHyperlipidemiaHyperlipidemiaHyperlipidemiaHypertension ID="[id number]">Alopecia</content>, (systemic)Hypertension (systemic)Hypertension (systemic)Hypertension (systemic)Hypertension (systemic)Hypertension (systemic)Hypertension (systemic)Hypertension (systemic)Hypertension (systemic)Hypertension (systemic)Hypertension <content (systemic)Hyper tension (systemic)Hypertension (systemic)Hypertension (systemic)Hypertension (systemic)Hypertension (systemic)Hypertension (systemic)Hypertension (systemic)Hypertension (systemic)Hypertension (systemic)Hypertension ID="[id number]">Fatigue</content>, (systemic)Hypertension (systemic)Hypertension (systemic)Hypertension (systemic)Hypertension (systemic)Hypertension (systemic)Hypertension (systemic)Hypertension (systemic)Hypertension (systemic)Hypertension (systemic) <content ID="[id number]">Hypertension (systemic)</content>, <content ID="[id number]">Hyperlipidemia</content>, <content ID="[id number]">Gastritis</content></td> Prediabetes Prediabetes Prediabetes Prediabetes Prediabetes Prediabetes Prediabetes Prediabetes Prediabetes Prediabetes Prediabetes Prediabetes Prediabetes Prediabetes Prediabetes Prediabetes Prediabetes Prediabetes Prediabetes Gastritis Fatigue [place] Gastritis Fatigue [place] Gastritis Fatigue [place] Gastritis Fatigue [place] Gastritis Fatigue [place] Gastritis Fatigue [place] Gastritis Fatigue [place] Gastritis Fatigue [place] Gastritis Fatigue [place] Gastritis Fatigue [place] Gastritis Fatigue [place] Gastritis Fatigue [place] Gastritis Fatigue [place] Gastritis Fatigue [place] Gastritis Fatigue [place] Gastritis Fatigue [place] Gastritis Fatigue [place] Gastritis Fatigue [place] Gastritis Fatigue [place] Gastritis Fatigue [place] Prediabetes Gastritis Fatigue [place] Prediabetes Gastritis Fatigue [place] Prediabetes Gastritis Fatigue [place] Prediabetes Gastritis Fatigue [place] Prediabetes Gastritis Fatigue [place] Prediabetes Gastritis Fatigue [place] Prediabetes Gastritis Fatigue [place] Prediabetes Gastritis Fatigue [place] Prediabetes Gastritis Fatigue [place] Prediabetes Gastritis Fatigue [place] Prediabetes Hyperlipidemia Hyperlipidemia Hyperlipidemia Hyperlipidemia Hyperlipidemia Hyperlipidemia Hyperlipidemia Hyperlipidemia Hyperlipidemia Hyperlipidemia Hyperlipidemia Hyperlipidemia Hyperlipidemia Hyperlipidemia Hyperlipidemia Hyperlipidemia Hyperlipidemia Hyperlipidemia Hyperlipidemia Hyperlipidemia Hyperlipidemia Hyperlipidemia Hyperlipidemia Hyperlipidemia Hyperlipidemia Hyperlipidemia Hyperlipidemia Hyperlipidemia Hyperlipidemia Hyperlipidemia Hypertension (systemic) Hypertension (systemic) Hypertension (systemic) Hypertension (systemic) Hypertension (systemic) Hypertension (systemic) Hypertension (systemic) Hypertension (systemic) Hypertension (systemic) Hypertension (systemic) Hypertension (systemic) Hypertension (systemic) Hypertension (systemic) Hypertension (systemic) Hypertension (systemic) Hypertension (systemic) Hypertension (systemic) Hypertension (systemic) Hypertension (systemic) Hypertension (systemic) Hypertension (systemic) Hypertension (systemic) Hypertension (systemic) Hypertension (systemic) Hypertension (systemic) Hypertension (systemic) Hypertension (systemic) Hypertension (systemic) Hypertension (systemic) Hypertension (systemic) Outpatient<td Attender: Osvaldo 01/27/2019 RANJEET ID="[id number]">[facility] 11: 00:00 AM (Kathya Lujan INITIAL VISIT</td><td>[facility]</td><td>[facility] 01/28/20 Health Center</td><td>01/27/2019</td><td></td> 03:27:5 2 PM Center) EST Outpatient<td Attender: Osvaldo 01/27/2019 [place] ID="[id number]">PATIENT [facility] 08:59 :00 AM (Kathya Lujan ADVOCACY</td><td>[facility]</td><td>[facility] 2018 Health Center</td><td>01/27/2019</td><td></td> 11:59:0 0 PM Center) EST Outpatient Attender: Tasha 01/14/2019 [facility] 12:48:00 PM Medical [facility] Center ter: HERMILA CLEANINGRefer rer: HERMILA CLEANING OutpatientOFFICE/OUTPATIENT VISIT, NEW Attender: Family 01/15/20 19 [facility] 12:48:00 PM ([facility] 01/14/2019 Medical 12:48:00 PM Center) [facility] Outpatient 01/14/2019 [facility] 12:37:00 PM Medical [facility] Center Outpatient 01/14/2019 [facility] 12:00:00 AM Medical [facility] Center Outpatient<td Attender: Osvaldo 01/02/2019 [place] ID="[id number]">PATIENT [facility] 04:54 :00 PM ([facility]</td><td>[facility]</td><td>[facility] 2018 Health Center</td><td>01/02/2019</td><td></td> 11:59:0 0 PM Center) [facility] 01/02/2019 [facility] 12:35:00 PM Medical [facility] Center Patient admitted. Outpatient<td ID="[id number]">OFFICE Attender: Osvaldo 01/02/2019 OverweightLimb [place] VISIT</td><td>ROMEO WALTER HUMAN RESOURCES MANAGER</td><td>Osvaldo gibson 11:30:00 AM Pain Left [facility]</td><td>01/02/2019</td><td><content HUMAN RESOURCES MANAGER Center 12/19 Pain Left Health ID="[id number]">Limb Pain Left 12 :11:31 PM [facility]) Leg</content>, <content EST Pain Left ID="[id number]">Overweight</content></td> LegOverweightLimb Pain Left LegOverweightLimb Pain Left LegOverweightLimb Pain Left LegOverweightLimb Pain Left LegOverweightLimb Pain Left LegOverweightLimb Pain Left LegOverweightLimb Pain Left LegOverweightLimb Pain Left LegOverweightLimb Pain Left LegOverweightLimb Pain Left LegOverweightLimb Pain Left LegOverweightLimb Pain Left LegOverweightLimb Pain Left LegOverweightLimb Pain Left LegOverweightLimb Pain Left LegOverweightLimb Pain Left LegOverweightLimb Pain Left LegOverweightLimb Pain Left LegOverweightLimb Pain Left LegOverweightLimb Pain Left LegOverweightLimb Pain Left LegOverweightLimb Pain Left LegOverweightLimb Pain Left LegOverweightLimb Pain Left LegOverweightLimb Pain Left LegOverweightLimb Pain Left LegOverweightLimb Pain Left LegOverweightLimb Pain Left LegOverweightLimb Pain Left LegOverweightLimb Pain Left Leg Overweight Limb Pain Left Leg Overweight Limb Pain Left Leg Overweight Limb Pain Left Leg Overweight Limb Pain Left Leg Overweight Limb Pain Left Leg Overweight Limb Pain Left Leg Overweight Limb Pain Left Leg Overweight Limb Pain Left Leg Overweight Limb Pain Left Leg Overweight Limb Pain Left Leg Overweight Limb Pain Left Leg Overweight Limb Pain Left Leg Overweight Limb Pain Left Leg Overweight Limb Pain Left Leg Overweight Limb Pain Left Leg Overweight Limb Pain Left Leg Overweight Limb Pain Left Leg Overweight Limb Pain Left Leg Overweight Limb Pain Left Leg Overweight Limb Pain Left Leg Overweight Limb Pain Left Leg Overweight Limb Pain Left Leg Overweight Limb Pain Left Leg Overweight Limb Pain Left Leg Overweight Limb Pain Left Leg Overweight Limb Pain Left Leg Overweight Limb Pain Left Leg Overweight Limb Pain Left Leg Overweight Limb Pain Left Leg Overweight Limb Pain Left Leg Overweight Limb Pain Left Leg Overweight Limb Pain Left Leg Overweight Limb Pain Left Leg Outpatient<td Attender: Osvaldo 12/19/2018 Dry Eye [place] ID="[id number]">OFFICE [facility] 12:00:00 PM Syndrome ([place] VISIT</td><td>[facility] EDT - Both Neighborhood MD</td><td>[facility] MD Center 12/19/2018 [facility]</td><td>12/19/2018</td><td><content 05:1 5:52 PM Eye Center) ID="[id number]">[facility] EDT Syndrome Syndrome Both Eyes</content></td> Inder EyesDry Eye Syndrome Both EyesDry Eye Syndrome Both EyesDry Eye Syndrome Both EyesDry Eye Syndrome Both EyesDry Eye Syndrome Both EyesDry Eye Syndrome Both EyesDry Eye Syndrome Both EyesDry Eye Syndrome Both EyesDry Eye Syndrome Both EyesDry Eye Syndrome Both EyesDry Eye Syndrome Both EyesDry Eye Syndrome Both EyesDry Eye Syndrome Both EyesDry Eye Syndrome Both EyesDry Eye Syndrome Both EyesDry Eye Syndrome Both EyesDry Eye Syndrome Both EyesDry Eye Syndrome Both EyesDry Eye Syndrome Both EyesDry Eye Syndrome Both EyesDry Eye Syndrome Both EyesDry Eye Syndrome Both EyesDry Eye Syndrome Both EyesDry Eye Syndrome Both EyesDry Eye Syndrome Both EyesDry Eye Syndrome Both EyesDry Eye Syndrome Both EyesDry Eye Syndrome Both EyesDry Eye Syndrome Both EyesDry Eye Syndrome Both EyesDry Eye Syndrome Both EyesDry Eye Syndrome 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 Outpatient<td Attender: Osvaldo 12/15/2018 Ocular RANJEET ID="[id number]">WALKINS</td><td>[facility] 10:15:00 AM PainOverweightOcular [facility]</td><td>[facility] EDT - PainOverweightOcular [facility] Center</td><td>12/15/2018</td><td><content HUMAN RESOURCES MANAGER Center 12/15/2018 PainOverweightOcular [facility] ID="[id number]">Overweight</content>, 12:48:33 PM PainOverweightOcular Center) <content ID="[id number]">Ocular E DT PainOverweightOcular Pain</content>, <content PainOverwei ghtOcular ID="[id number]">Hypertension PainOverweightOcular (systemic)</content></td> PainOverwe ightOcular PainOverweightOcular PainOverweightOcular PainOverweightOcular PainOverweightOcular PainOverweightOcular PainOverweightOcular PainOverweightOcular PainOverweightOcular PainOverweightOcular PainOverweightOcular PainOverweightOcular PainOverweightOcular PainOverweightOcular PainOverweightOcular PainOverweightOcular PainOverweightOcular PainOverweightOcular PainOverweightOcular PainOverweightOcular PainOverweightOcular PainOverweightOcular PainOverweightOcular PainOverweightOcular PainOverweightOcular PainOverweightOcular PainOverweightOcular PainOverweightHypertens ion (systemic)Hypertension (systemic)Hypertension (systemic)Hypertension (systemic)Hypertension (systemic)Hypertension (systemic)Hypertension (systemic)Hypertension (systemic)Hypertension (systemic)Hypertension (systemic)Hypertension (systemic)Hypertension (systemic)Hypertension (systemic)Hypertension (systemic)Hypertension (systemic)Hypertension (systemic)Hypertension (systemic)Hypertension (systemic)Hypertension (systemic)Hypertension (systemic)Hypertension (systemic)Hypertension (systemic)Hypertension (systemic)Hypertension (systemic)Hypertension (systemic)Hypertension (systemic)Hypertension (systemic)Hypertension (systemic)Hypertension (systemic)Hypertension (systemic)Hypertension (systemic)Hypertension (systemic)Hypertension (systemic)Hypertension (systemic)Hypertension (systemic) Ocular Pain Overweight Ocular Pain Overweight Ocular Pain Overweight Ocular Pain Overweight Ocular Pain Overweight Ocular Pain Overweight Ocular Pain Overweight Ocular Pain Overweight Ocular Pain Overweight Ocular Pain Overweight Ocular Pain Overweight Ocular Pain Overweight Ocular Pain Overweight Ocular Pain Overweight Ocular Pain Overweight Ocular Pain Overweight Ocular Pain Overweight Ocular Pain Overweight Ocular Pain Overweight Ocular Pain Overweight Ocular Pain Overweight Ocular Pain Overweight Ocular Pain Overweight Ocular Pain Overweight Ocular Pain Overweight Ocular Pain Overweight Ocular Pain Overweight Ocular Pain Overweight Ocular Pain Overweight Ocular Pain Overweight Ocular Pain Overweight Ocular Pain Overweight Ocular Pain Overweight Ocular Pain Overweight Ocular Pain Overweight Hypertension (systemic) Hypertension (systemic) Hypertension (systemic) Hypertension (systemic) Hypertension (systemic) Hypertension (systemic) Hypertension (systemic) Hypertension (systemic) Hypertension (systemic) Hypertension (systemic) Hypertension (systemic) Hypertension (systemic) Hypertension (systemic) Hypertension (systemic) Hypertension (systemic) Hypertension (systemic) Hypertension (systemic) Hypertension (systemic) Hypertension (systemic) Hypertension (systemic) Hypertension (systemic) Hypertension (systemic) Hypertension (systemic) Hypertension (systemic) Hypertension (systemic) Hypertension (systemic) Hypertension (systemic) Hypertension (systemic) Hypertension (systemic) Hypertension (systemic) Hypertension (systemic) Hypertension (systemic) Hypertension (systemic) Hypertension (systemic) Hypertension (systemic) Outpatient<td Attender: Osvaldo 12/15/2018 RANJEET ID="[id number]">PATIENT [facility] 08:20 :00 AM (Salcha ADVOCACY</td><td>[facility] EDT - Ne [facility]</td><td>[facility] 2018 Health Center</td><td>12/15/2018</td><td></td> 11:59:0 0 PM Center) EDT Outpatient<td Attender: Osvaldo 12/28/2016 R RANJEET ID="[id number]">OFFICE [facility] 03:00: 00 PM e (Salcha VISIT</td><td>[facility] EST - f [facility] MD</td><td>[facility] Center 12/28/2016 Health Center</td><td>12/28/2016</td><td><content 04:4 4:21 PM a Center) ID="[id number]">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</content></td> i v e E r r o r - H y p e r m e t r o p i a B i l a t e r a l R e f r a c t i v e E r r o r - H y p e r m e t r o p i a B i l a t e r a l R e f r a c t i v e E r r o r - H y p e r m e t r o p i a B i l a t e r a l R e f r a c t i v e E r r o r - H y p e r m e t r o p i a B i l a t e r a l R e f r a c t i v e E r r o r - H y p e r m e t r o p i a B i l a t e r a l R e f r a c t i v e E r r o r - H y p e r m e t r o p i a B i l a t e r a l R e f r a c t i v e E r r o r - H y p e r m e t r o p i a B i l a t e r a l R e f r a c t i v e E r r o r - H y p e r m e t r o p i a B i l a t e r a l R e f r a c t i v e E r r o r - H y p e r m e t r o p i a B i l a t e r a l R e f r a c t i v e E r r o r - H y p e r m e t r o p i a B i l a t e r a l R e f r a c t i v e E r r o r - H y p e r m e t r o p i a B i l a t e r a l R e f r a c t i v e E r r o r - H y p e r m e t r o p i a B i l a t e r a l R e f r a c t i v e E r r o r - H y p e r m e t r o p i a B i l a t e r a l R e f r a c t i v e E r r o r - H y p e r m e t r o p i a B i l a t e r a l R e f r a c t i v e E r r o r - H y p e r m e t r o p i a B i l a t e r a l R e f r a c t i v e E r r o r - H y p e r m e t r o p i a B i l a t e r a l R e f r a c t i v e E r r o r - H y p e r m e t r o p i a B i l a t e r a l R e f r a c t i v e E r r o r - H y p e r m e t r o p i a B i l a t e r a l R e f r a c t i v e E r r o r - H y p e r m e t r o p i a B i l a t e r a l R e f r a c t i v e E r r o r - H y p e r m e t r o p i a B i l a t e r a l R e f r a c t i v e E r r o r - H y p e r m e t r o p i a B i l a t e r a l R e f r a c t i v e E r r o r - H y p e r m e t r o p i a B i l a t e r a l R e f r a c t i v e E r r o r - H y p e r m e t r o p i a B i l a t e r a l R e f r a c t i v e E r r o r - H y p e r m e t r o p i a B i l a t e r a l R e f r a c t i v e E r r o r - H y p e r m e t r o p i a B i l a t e r a l R e f r a c t i v e E r r o r - H y p e r m e t r o p i a B i l a t e r a l R e f r a c t i v e E r r o r - H y p e r m e t r o p i a B i l a t e r a l R e f r a c t i v e E r r o r - H y p e r m e t r o p i a B i l a t e r a l R e f r a c t i v e E r r o r - H y p e r m e t r o p i a B i l a t e r a l R e f r a c t i v e E r r o r - H y p e r m e t r o p i a B i l a t e r a l R e f r a c t i v e E r r o r - H y p e r m e t r o p i a B i l a t e r a l R e f r a c t i v e E r r o r - H y p e r m e t r o p i a B i l a t e r a l R e f r a c t i v e E r r o r - H y p e r m e t r o p i a B i l a t e r a l R e f r a c t i v e E r r o r - H y p e r m e t r o p i a B i l a t e r a l R e f r a c t i v e E r r o r - H y p e r m e t r o p i a B i l a t e r a l Refractive Error - Hypermetropia Bilater al Refractive Error - Hypermetropia Bilater al Refractive Error - Hypermetropia Bilater al Refractive Error - Hypermetropia Bilater al Refractive Error - Hypermetropia Bilater al Refractive Error - Hypermetropia Bilater al Refractive Error - Hypermetropia Bilater al Refractive Error - Hypermetropia Bilater al Refractive Error - Hypermetropia Bilater al Refractive Error - Hypermetropia Bilater al Refractive Error - Hypermetropia Bilater al Refractive Error - Hypermetropia Bilater al Refractive Error - Hypermetropia Bilater al Refractive Error - Hypermetropia Bilater al Refractive Error - Hypermetropia Bilater al Refractive Error - Hypermetropia Bilater al Refractive Error - Hypermetropia Bilater al Refractive Error - Hypermetropia Bilater al Refractive Error - Hypermetropia Bilater al Refractive Error - Hypermetropia Bilater al Refractive Error - Hypermetropia Bilater al Refractive Error - Hypermetropia Bilater al Refractive Error - Hypermetropia Bilater al Refractive Error - Hypermetropia Bilater al Refractive Error - Hypermetropia Bilater al Refractive Error - Hypermetropia Bilater al Refractive Error - Hypermetropia Bilater al Refractive Error - Hypermetropia Bilater al Refractive Error - Hypermetropia Bilater al Refractive Error - Hypermetropia Bilater al Refractive Error - Hypermetropia Bilater al Refractive Error - Hypermetropia Bilater al Refractive Error - Hypermetropia Bilater al Refractive Error - Hypermetropia Bilater al Refractive Error - Hypermetropia Bilater al Outpatient<td Attender: [place] 12/18/2016 [place] ID="[id number]">[facility]</td><td>MARGARITA BRYSON [facility] 11:30:00 AM (Salcha ROMAIN D[facility]</td><td>[facility] EDT - [facility]</td><td>12/18/2016</td><td></td> Center [facility] 11:59:00 PM Center) EDT Medications Medication Brand Start Product Dose Route Administrative Pharmacy [facility] Indications Reaction Description Data Name Date Form Instructions Instructions Source(s) Omeprazole Omepra 08/24/ UNIT 1 active Omeprazo le RANJEET 40 MG zole 2019 ([facility] Delayed 40MG 12:00: Tai Release Oral 00 AM [facility] Oral Capsul EDT od Health Capsule e Center) Omeprazole Delaye 40MG Oral d Capsule Releas Delayed e Release Tylenol 8 Tyleno 08/02/ UNIT 1 complet Mapap GR EENWAY Hour l 8 2019 ed ([facility] Arthritis Hour 12:00: Tai Pain 650MG Arthri 00 AM [facility] Oral Tablet tis EDT od Healt h Extended Pain Center) Release 650MG Oral Tablet Extend ed Releas e Amlodipine amLODI 07/19/ UNIT 1 active amLODIPi ne RANJEET 10 MG / [place] 2019 Besy-Benazep (Carol nt Benazepril Besy-B 12:00: ril HCl Ve rnon hydrochlori enazep 00 AM [facility] de 20 MG ril EDT od Health Oral HCl Center) Capsule 10-20M amLODIPine G Oral Besy-Benaze Capsul pril HCl e 10-20MG Oral Capsule Aspirin 81 Aspiri 07/19/ UNIT 1 active Aspirin RANJEET MG Delayed n 81MG 2019 ([facility] Release Oral 12:00: Tai Oral Tablet Tablet 00 AM [facility] Aspirin Delaye EDT od Health 81MG Oral d Center) Tablet Releas Delayed e Release atorvastati Atorva 07/19/ UNIT 1 active Atorvas tatin RANJEET n 40 MG statin 2020 Calcium ([facility] Oral Tablet Calciu 12:00: Cal on Atorvastati m 40MG 00 AM [facility] n Calcium Oral EDT od Health 40MG Oral Tablet Center) Tablet Omeprazole Omepra 07/19/ UNIT 1 suspend Omepraz ole RANJEET 40 MG zole 2019 ed ([facility] Delayed 40MG 12:00: Tai Release Oral 00 AM [facility] Oral Capsul EDT od Health Capsule e Center) Omeprazole Delaye 40MG Oral d Capsule Releas Delayed e Release Diclofenac Diclof 07/19/ APPLICAT complet Dic lofenac RANJEET Sodium 0.01 enac 2020 ION UNIT ed Sodium (M ount MG/MG Sodium 12:00: Tai Topical Gel 1% 00 AM [facility] Diclofenac Transd EDT od Heal th Sodium 1% ermal Center) Transdermal Gel Gel atorvastati Atorva 03/25/ UNIT 1 suspend Atorva statin RANJEET n 40 MG statin 2019 ed Calcium ([facility] Oral Tablet Calciu 12:00: Cal on Atorvastati m 40MG 00 AM [facility] n Calcium Oral EST od Health 40MG Oral Tablet Center) Tablet Tylenol 8 Tyleno 03/25/ UNIT 1 suspend Mapap GR EENWAY Hour l 8 2019 ed ([facility] Arthritis Hour 12:00: Tai Pain 650MG Arthri 00 AM [facility] Oral Tablet tis EST od [facility]alt [facility] Extended [facility] Center) Release 650MG Oral Tablet Extend ed Releas e Aspirin 81 Aspiri 03/25/ UNIT 1 suspend Aspirin RANJEET MG Delayed n 81MG 2019 ed ([facility] Release Oral 12:00: Tai Oral Tablet Tablet 00 AM [facility] Aspirin Delaye EST od Health 81MG Oral d Center) Tablet Releas Delayed e Release Omeprazole Omepra 03/25/ UNIT 1 suspend Omepraz ole RANJEET 40 MG zole 2019 ed ([facility] Delayed 40MG 12:00: Tai Release Oral 00 AM [facility] Oral Capsul EST od Health Capsule e Center) Omeprazole Delaye 40MG Oral d Capsule Releas Delayed e Release Amlodipine amLODI 03/25/ UNIT 1 suspend amLODIP ine RANJEET 10 MG / [place] 2019 ed Besy-Benazep (Carol nt Benazepril Besy-B 12:00: ril HCl Ve rnon hydrochlori enazep 00 AM [facility] de 20 MG ril EST od Health Oral HCl Center) Capsule 10-20M amLODIPine G Oral Besy-Benaze Capsul pril HCl e 10-20MG Oral Capsule Omeprazole Omepra 02/25/ UNIT 1 suspend Omepraz ole RANJEET 40 MG zole 2019 ed ([facility] Delayed 40MG 12:00: Tai Release Oral 00 AM [facility] Oral Capsul EST od Health Capsule e Center) Omeprazole Delaye 40MG Oral d Capsule Releas Delayed e Release Diclofenac Diclof 02/03/ APPLICAT suspend Dic lofenac RANJEET Sodium 0.01 enac 2019 ION UNIT ed Sodium (M ount MG/MG Sodium 12:00: Tai Topical Gel 1% 00 AM [facility] Diclofenac Transd EST od Heal th Sodium 1% ermal Center) Transdermal Gel Gel Aspirin 81 Aspiri UNIT 1 suspend Aspirin RANJEET MG Delayed n 81MG 2019 ed ([facility] Release Oral 12:00: Tai Oral Tablet Tablet 00 AM [facility] Aspirin Delaye EST od Health 81MG Oral d Center) Tablet Releas Delayed e Release Amlodipine amLODI UNIT 1 suspend amLODIP ine RANJEET 10 MG / [place] 2018 ed Besy-Benazep (Carol nt Benazepril Besy-B 12:00: ril HCl Ve rnon hydrochlori enazep 00 AM Ne[facility] de 20 MG ril EST od Health Oral HCl Center) Capsule 10-20M amLODIPine G Oral Besy-Benaze Capsul pril HCl e 10-20MG Oral Capsule Omeprazole Omepra UNIT 1 suspend Omepraz ole RANJEET 40 MG zole 2018 ed ([facility] Delayed 40MG 12:00: Tai Release Oral 00 AM [facility] Oral Capsul EST od Health Capsule e Center) Omeprazole Delaye 40MG Oral d Capsule Releas Delayed e Release atorvastati Atorva UNIT 1 suspend Atorva statin RANJEET n 40 MG statin 2019 ed Calcium ([facility] Oral Tablet Calciu 12:00: Cal on Atorvastati m 40MG 00 AM [facility] n Calcium Oral EST od Health 40MG Oral Tablet Center) Tablet meloxicam Meloxi 01/02/ UNIT 1 complet Meloxica m RANJEET 15 MG Oral cam 2019 ed ([facility] Tablet 15MG 12:00: Tai Meloxicam Oral 00 AM [facility] 15MG Oral Tablet EST od Healt h Tablet Center) atorvastati Atorva UNIT 1 active Atorvas tatin RANJEET n 40 MG statin 2019 Calcium ([facility] Oral Tablet Calciu 12:00: Cal on Atorvastati m 40MG 00 AM [facility] n Calcium Oral EST od Health 40MG Oral Tablet Center) Tablet Amlodipine amLODI 01/02/ UNIT 1 active amLODIPi ne RANJEET 10 MG / [place] 2019 Besy-Benazep (Carol nt Benazepril Besy-B 12:00: ril HCl Ve rnon hydrochlori enazep 00 AM [facility] de 20 MG ril EST od Health Oral HCl Center) Capsule 10-20M amLODIPine G Oral Besy-Benaze Capsul pril HCl e 10-20MG Oral Capsule Aspirin 81 Aspiri 01/02/ UNIT 1 active Aspirin RANJEET MG Delayed n 81MG 2018 ([facility] Release Oral 12:00: Tai Oral Tablet Tablet 00 AM [facility] Aspirin Delaye EST od Health 81MG Oral d Center) Tablet Releas Delayed e Release Systane Systan 12/19/ APPLICAT 1 complet Systan e RANJEET 0.4-0.3% e 2018 ION UNIT ed ([facility] Ophthalmic 0.4-0. 12:00: Verno n Gel 3% 00 AM [facility] Ophtha EDT od Health lmic Center) Gel Norvasc Norvas 12/15/ UNIT 1 active Norvasc GRE ENWAY 10MG Oral c 10MG 2018 ([facility] Tablet Oral 12:00: Tai Tablet 00 AM [facility] EDT od Health Center) Acetaminoph Acetam 12/18/ UNIT 1 complet Acetam inophe RANJEET en 500 MG inophe 2016 ed n ([facility] Oral Tablet n 12:00: Tai Acetaminoph 500MG 00 AM [facility] en 500MG Oral EDT od Health Oral Tablet Tablet Center ) Amoxicillin Amoxic 12/18/ UNIT 1 complet Amoxic illin RANJEET 875 MG Oral illin 2016 ed ([facility] Tablet 875MG 12:00: Tai Amoxicillin Oral 00 AM [facility] 875MG Oral Tablet EDT od [facility] th Tablet Center) Aspirin 81 Aspiri 1.0 active Aspirin 81 eCW1 MG Delayed n 81 {tabl MG ([facility] Release MG et} [facility]) Acetaminoph UNK 1.0 active Acetaminoph e eCW1 en 500 MG {caps n 500 MG ([facility] t ule[facility]a [facility]} [facility]) Amlodipine Amlodi active Amlodipine eCW1 10 MG / pine Besy-Benazep (Davon nt Benazepril Besy-B ril HCl Sylvester phs hydrochlori enazep 10-20 MG Me dical de 20 MG ril Practice Oral HCl PC) Capsule 10-20 Amlodipine MG Besy-Benaze pril HCl 10-20 MG atorvastati Atorva 1.0 active Atorvasta tin eCW1 n 40 MG statin {tabl Calcium 40 (Sa int Oral Tablet Calciu et} MG Alonzo s Atorvastati m 40 Medical n Calcium MG Practice 40 MG PC) Omeprazole Omepra active Omeprazole eCW1 40 MG zole 40 MG (Saint Delayed 40 MG [facility] Release Medical Oral Practice Capsule PC) Insurance Providers Payer name Policy type Policy ID Covered Covered Policy Plan / Coverage democrat ID democrat's Colon Informati on type relationship to colon MEDICAID [id number] SP [id number] [facility] DUAL [id number] SP [id number] COMPLETE MEDICAID [id number] SP [id number] [facility] D[facility] [id number] SP [id number] COMPLETE [facility] CARE MCARE OPD W [id number] [address] [id number] [facility] O [id number] MCARE OPD [facility] Individual 0 Self 0 Employees ([place]) Policy - [facility] Individual 0 Self 0 Employees ([place]) Policy - [facility] Individual 0 Self 0 Employees ([place]) Policy - [facility] Individual 0 Self 0 Employees ([place]) Policy - [facility] Individual 0 Self 0 Employees ([place]) Policy - [facility] Individual 0 Self 0 Employees ([place]) Policy - [facility] Individual 0 Self 0 Employees ([place]) Policy - [facility] MEDICARE PART B [id number] 1 [id number] [facility] [id number] [facility] Individual 0 Self 0 Employees ([place]) Policy - [facility] Individual 0 Self 0 Employees ([place]) Policy - [facility] Individual 0 Self 0 Employees ([place]) Policy - [facility] Individual 0 Self 0 Employees ([place]) Policy - [facility] Individual 0 Self 0 Employees ([place]) Policy - [facility] Individual 0 Self 0 Employees ([place]) Policy - [facility] Individual 0 Self 0 Employees ([place]) Policy - [facility] MEDICARE [id number] SP [id number] [facility] Individual 0 Self 0 Employees ([place]) Policy - [facility] Individual 0 Self 0 Employees ([place]) Policy - [facility] Individual 0 Self 0 Employees ([place]) Policy - [facility] Individual 0 Self 0 Employees ([place] Policy - [facility] Individual 0 Self 0 Employees ([place]) Policy - [facility] Individual 0 Self 0 Employees ([place]) Policy - [facility] Individual 0 Self 0 Employees ([place] Policy - [facility] Individual 0 Self 0 Employees ([place]) Policy - [facility] Individual 0 Self 0 Employees ([place]) Policy - [facility] Individual 0 Self 0 Employees ([place] Policy - [facility] Individual 0 Self 0 Employees ([place]) Policy - [facility] Individual 0 Self 0 Employees ([place]) Policy - [facility] Individual 0 Self 0 Employees ([place]) Policy - [facility] Individual 0 Self 0 Employees ([place]) Policy - [facility] Individual 0 Self 0 Employees ([place]) Policy - [facility] Individual 0 Self 0 Employees ([place]) Policy - [facility] Individual 0 Self 0 Employees ([place]) Policy - [facility] Individual 0 Self 0 Employees ([place]) Policy - [facility] Individual 0 Self 0 Employees ([place]) Policy - [facility] Individual 0 Self 0 Employees ([place]) Policy - [facility] Dental [facility] [id number] S [id number] Medicare Advantage Medicare-Blue [id number] S [id number] Cross/Blue Shield 25 Medicare United [id number] S [id number] Government 25 Services [facility] [id number] S [id number] [facility] Dual Complete Dental [facility] [id number] S [id number] Community MKD Plan Dental March Vision [id number] S [id number] 58 Medicaid [facility] Optum [id number] S [id number] Behavioral Health Medicaid [id number] S [id number] Regular Clinic Visit [facility] [id number] S [id number] MKD Community Plan [facility] Individual 0 Self 0 Employees ([place]) Policy - [facility] Problems, Conditions, and Diagnoses Code Display Name Description Problem Type Effective Data Sour ce(s) Dates I10 65606012 Essential Problem 11/09/2019 eCW1 ([facility] hypertension 12:00:00 AM [facility]) [id number] Tendinitis Tendonitis Problem 07/24/2019 RANJEET (Moun t (disorder) 12:00:00 AM [facility]) [id number] Tendinitis Tendonitis Problem 07/24/2019 RANJEET (Moun t (disorder) 12:00:00 AM [facility]) [id number] Tendinitis Tendonitis Problem 07/24/2019 RANJEET (Moun t (disorder) 12:00:00 AM [facility]) 15687385 Tendinitis Tendonitis Problem 07/24/2019 RANJEET (Moun t (disorder) 12:00:00 AM [facility]) 51524074 Tendinitis Tendonitis Problem 07/24/2019 RANJEET (Moun t (disorder) 12:00:00 AM [facility]) 03215584 Tendinitis Tendonitis Problem 07/20/2019 RANJEET (Moun t (disorder) 12:00:00 AM [facility]) 71830671 Tendinitis Tendonitis Problem 06/19/2019 RANJEET (Moun t (disorder) 12:00:00 AM [facility]) 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 0 RANJEET ([place] nodule nodule 12:00:00 AM [facility]) [id number] Liver cyst Hepatic Cyst Problem 05/11/2019 RANJEET (Mo unt (disorder) 12:00:00 AM [facility]) 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 0 RANJEET ([place] nodule nodule 12:00:00 AM [facility]) [id number] Liver cyst Hepatic Cyst Problem 05/11/2019 RANJEET (Mo unt (disorder) 12:00:00 AM [facility]) 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 0 RANJEET ([place] nodule nodule 12:00:00 AM [facility]) [id number] Liver cyst Hepatic Cyst Problem 05/11/2019 RANJEET (Mo unt (disorder) 12:00:00 AM [facility]) 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 0 RANJEET ([place] nodule nodule 12:00:00 AM [facility]) 16056384 Liver cyst Hepatic Cyst Problem 05/11/2019 RANJEET (Mo unt (disorder) 12:00:00 AM [facility]) 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 0 RANJEET ([place] nodule nodule 12:00:00 AM [facility]) 54875872 Liver cyst Hepatic Cyst Problem 05/11/2019 RANJEET (Mo unt (disorder) 12:00:00 AM [facility]) 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 0 RANJEET ([place] nodule nodule 12:00:00 AM [facility]) 53912536 Liver cyst Hepatic Cyst Problem 05/11/2019 RANJEET (Mo unt (disorder) 12:00:00 AM [facility]) 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 0 RANJEET ([place] nodule nodule 12:00:00 AM [facility]) 06051699 Liver cyst Hepatic Cyst Problem 05/11/2019 RANJEET (Mo unt (disorder) 12:00:00 AM [facility]) 28224139 Tendinitis Tendonitis Problem 05/11/2019 RANJEET (Moun t (disorder) 12:00:00 AM [facility]) 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 0 RANJEET ([place] nodule nodule 12:00:00 AM [facility]) [id number] Liver cyst Hepatic Cyst Problem 05/11/2019 RANJEET (Mo unt (disorder) 12:00:00 AM [facility]) 99655853 Tendinitis Tendonitis Problem 05/11/2019 RANJEET (Moun t (disorder) 12:00:00 AM [facility]) 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 03/23/202 0 RANJEET ([place] nodule nodule 12:00:00 AM [facility]) [id number] Liver cyst Hepatic Cyst Problem 05/11/2019 RANJEET (Mo unt (disorder) 12:00:00 AM [facility]) 07932222 Tendinitis Tendonitis Problem 05/04/2019 RANJEET (Moun t (disorder) 12:00:00 AM [facility]) 86070066 Tendinitis Tendonitis Problem 05/04/2019 RANJEET (Moun t (disorder) 12:00:00 AM [facility]) [id number] 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/2019 [place] ([place] kidney (disorder) 12:00:00 AM [facility]) 119273560 Steatosis of liver Fatty Liver Problem 03/25/[address] ([place] (disorder) 12:00:00 AM [facility]) [id number] 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/2019 [place] ([place] kidney (disorder) 12:00:00 AM [facility]) [id number] Steatosis of liver Fatty Liver Problem 03/25/[address] ([place] (disorder) 12:00:00 AM [facility]) [id number] 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/2019 [place] ([place] kidney (disorder) 12:00:00 AM [facility]) 201885666 Steatosis of liver Fatty Liver Problem 03/25/[address] ([place] (disorder) 12:00:00 AM [facility]) [id number] 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/2019 [place] ([place] kidney (disorder) 12:00:00 AM [facility]) 800124342 Steatosis of liver Fatty Liver Problem 03/25/[address] ([place] (disorder) 12:00:00 AM [facility]) [id number] 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/2019 [place] ([place] kidney (disorder) 12:00:00 AM [facility]) 199096805 Steatosis of liver Fatty Liver Problem 03/25/[address] ([place] (disorder) 12:00:00 AM [facility]) [id number] 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/2019 [place] ([place] kidney (disorder) 12:00:00 AM [facility]) [id number] Steatosis of liver Fatty Liver Problem 03/25/[address] ([place] (disorder) 12:00:00 AM [facility]) [id number] 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/2019 [place] ([place] kidney (disorder) 12:00:00 AM [facility]) [id number] Steatosis of liver Fatty Liver Problem 03/25/[address] ([place] (disorder) 12:00:00 AM [facility] [facility]) [id number] 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/2019 [place] ([place] (disorder) 12:00:00 AM [facility]) [id number] Steatosis of liver Fatty Liver Problem 03/25/[address] ([place] (disorder) 12:00:00 AM [facility]) [id number] 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/2019 [place] ([place] ([place]order) 12:00:00 AM [facility]) [id number] Steatosis of liver Fatty Liver Problem 03/25/[address] ([place] (disorder) 12:00:00 AM [facility]) [id number] 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/2019 [place] ([place]order) 12:00:00 AM [facility]) [id number] Steatosis of liver Fatty Liver Problem 03/25/[address] ([place] (disorder) 12:00:00 AM [facility]) [id number] 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/2019 [place] ([place] ([place]order) 12:00:00 AM [facility]) [id number] Steatosis of liver Fatty Liver Problem 03/25/[address] ([place] (disorder) 12:00:00 AM [facility]) [id number] Tendinitis Tendonitis Problem 03/25/2019 [place] ([place] (disorder) 12:00:00 AM [facility]) [id number] 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/2019 [place] ([place]order) 12:00:00 AM [facility]) [id number] Steatosis of liver Fatty Liver Problem 03/25/[address] ([place] (disorder) 12:00:00 AM [facility]) [id number] Tendinitis Tendonitis Problem 03/25/2019 [place] ([place] (disorder) 12:00:00 AM [facility]) [id number] 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/2019 [place] ([place]order) 12:00:00 AM [facility]) [id number] Steatosis of liver Fatty Liver Problem 03/25/[address] ([place] (disorder) 12:00:00 AM [facility]) [id number] Tendinitis Tendonitis Problem 03/25/2019 [place] ([place] (disorder) 12:00:00 AM [facility]) [id number] 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/2019 [place] ([place]order) 12:00:00 AM [facility]) [id number] Steatosis of liver Fatty Liver Problem 03/25/[address] ([place] (disorder) 12:00:00 AM [facility]) [id number] Tendinitis Tendonitis Problem 03/16/2019 [place] ([place] ([place]order) 12:00:00 AM [facility]) [id number] Impaired glucose Prediabetes Problem 03/10/2019 [facility] ([place] tolerance 12:00:00 AM [place] (disorder) [facility]) [id number] Impaired glucose Prediabetes Problem 03/10/2019 [facility] ([place] tolerance 12:00:00 AM [place] (disorder) [facility]) [id number] Impaired glucose Prediabetes Problem 03/10/2019 [place] ([place] tolerance 12:00:00 AM [place] (disorder) [facility]) [id number] Impaired glucose Prediabetes Problem 03/10/2019 [place] ([place] tolerance 12:00:00 AM [place] (disorder) [facility]) [id number] Impaired glucose Prediabetes Problem 03/10/2019 [place] ([place] tolerance 12:00:00 AM [place] (disorder) [facility]) [id number] Impaired glucose Prediabetes Problem 03/10/2019 [place] ([place] tolerance 12:00:00 AM [place] (disorder) [facility]) [id number] Tendinitis Tendonitis Problem 03/10/2019 [place] ([place] (disorder) 12:00:00 AM [facility]) [id number] Impaired glucose Prediabetes Problem 03/10/2019 [place] ([place] tolerance 12:00:00 AM [place] (disorder) [facility]) [id number] Tendinitis Tendonitis Problem 03/10/2019 [place] ([place] (disorder) 12:00:00 AM [facility]) [id number] Impaired glucose Prediabetes Problem 03/10/2019 [place] ([place] tolerance 12:00:00 AM [place] (disorder) [facility]) [id number] Tendinitis Tendonitis Problem 03/10/2019 [place] ([place] (disorder) 12:00:00 AM [facility]) [id number] Impaired glucose Prediabetes Problem 03/10/2019 [place] ([place] tolerance 12:00:00 AM [place] (disorder) [facility]) [id number] Tendinitis Tendonitis Problem 03/10/2019 [place] ([place] (disorder) 12:00:00 AM [facility]) [id number] Impaired glucose Prediabetes Problem 03/10/2019 [place] ([place] tolerance 12:00:00 AM [place] (disorder) [facility]) [id number] Impaired glucose Prediabetes Problem 03/10/2019 [place] ([place] tolerance 12:00:00 AM [place] (disorder) [facility]) [id number] Impaired glucose Prediabetes Problem 03/10/2019 [place] ([place] tolerance 12:00:00 AM [place] (disorder) [facility]) [id number] Impaired glucose Prediabetes Problem 03/10/2019 [place] ([place] tolerance 12:00:00 AM [place] (disorder) [facility]) [id number] Impaired glucose Prediabetes Problem 03/10/2019 [place] ([place] tolerance 12:00:00 AM [place] (disorder) [facility]) [id number] Impaired glucose Prediabetes Problem 03/10/2019 [place] ([place] tolerance 12:00:00 AM [place] (disorder) [facility]) [id number] Impaired glucose Prediabetes Problem 03/10/2019 [place] ([place] tolerance 12:00:00 AM [place] (disorder) [facility]) [id number] Impaired glucose Prediabetes Problem 03/10/2019 [place] ([place] tolerance 12:00:00 AM [place] (disorder) [facility]) [id number] Impaired glucose Prediabetes Problem 03/10/2019 [facility] ([place] tolerance 12:00:00 AM [place] (disorder) [facility]) [id number] Impaired glucose Prediabetes Problem 03/10/2019 [facility] ([place] tolerance 12:00:00 AM [place] (disorder) [facility]) [id number] Tendinitis Tendonitis Problem 03/06/2019 [place] ([place] (disorder) 12:00:00 AM [facility]) [id number] Tendinitis Tendonitis Problem 03/06/2019 [place] ([place] (disorder) 12:00:00 AM [facility]) [id number] Tendinitis Tendonitis Problem 03/05/2019 [place] ([place] (disorder) 12:00:00 AM [facility]) [id number] Tendinitis Tendonitis Problem 03/02/2019 [place] ([place] (disorder) 12:00:00 AM [facility]) [id number] Tendinitis Tendonitis Problem 02/25/2019 [place] ([place] (disorder) 12:00:00 AM [facility]) [id number] Tendinitis Tendonitis Problem 02/03/2019 [place] ([place] (disorder) 12:00:00 AM [facility]) [id number] Tendinitis Tendonitis Problem 02/03/2019 [place] ([place] (disorder) 12:00:00 AM [facility]) [id number] Tendinitis Tendonitis Problem 02/03/2019 [place] ([place] (disorder) 12:00:00 AM [facility]) [id number] Tendinitis Tendonitis Problem 01/27/2019 [place] ([place] (disorder) 12:00:00 AM [facility]) [id number] Tendinitis Tendonitis Problem 01/27/2019 [place] ([place] (disorder) 12:00:00 AM [facility]) [id number] Tendinitis Tendonitis Problem 01/27/2019 [place] ([place] (disorder) 12:00:00 AM [facility]) [id number] Tendinitis Tendonitis Problem 01/06/2019 [place] ([place] (disorder) 12:00:00 AM [facility]) [id number] Tendinitis Tendonitis Problem 01/06/2019 [place] ([place] (disorder) 12:00:00 AM [facility]) [id number] Tendinitis Tendonitis Problem 01/02/2019 [place] ([place] (disorder) 12:00:00 AM [facility]) [id number] Hyperlipidemia Hyperlipidemia Problem 03/20/2017 [place] ([place] (disorder) 12:00:00 AM [facility]) [id number] Hyperlipidemia Hyperlipidemia Problem 03/20/2017 [place] ([place] (disorder) 12:00:00 AM [facility]) [id number] Hyperlipidemia Hyperlipidemia Problem 03/20/2017 [place] ([place] (disorder) 12:00:00 AM [facility]) [id number] Hyperlipidemia Hyperlipidemia Problem 03/20/2017 [place] ([place] (disorder) 12:00:00 AM [facility]) [id number] Hyperlipidemia Hyperlipidemia Problem 03/20/2017 [place] ([place] (disorder) 12:00:00 [facility]) [id number] Hyperlipidemia Hyperlipidemia Problem 03/20/2017 [place] ([place] (disorder) 12:00:00 AM [facility]) [id number] Hyperlipidemia Hyperlipidemia Problem 03/20/2017 [place] ([place] (disorder) 12:00:00 [facility]) [id number] Hyperlipidemia Hyperlipidemia Problem 03/20/2017 [place] ([place] (disorder) 12:00:00 AM [facility]) [id number] Hyperlipidemia Hyperlipidemia Problem 03/20/2017 [place] ([place] (disorder) 12:00:00 AM [facility]) [id number] Hyperlipidemia Hyperlipidemia Problem 03/20/2017 [place] ([place] (disorder) 12:00:00 AM [facility]) 73574053 Hyperlipidemia Hyperlipidemia Problem 03/20/2017 [place] ([place] (disorder) 12:00:00 AM [facility]) [id number] Hyperlipidemia Hyperlipidemia Problem 03/20/2017 [place] ([place] (disorder) 12:00:00 AM [facility]) [id number] Hyperlipidemia Hyperlipidemia Problem 03/20/2017 [place] ([place] (disorder) 12:00:00 AM [facility]) [id number] Hyperlipidemia Hyperlipidemia Problem 03/20/2017 [place] ([place] (disorder) 12:00:00 AM [facility]) [id number] Hyperlipidemia Hyperlipidemia Problem 03/20/2017 [place] ([place] (disorder) 12:00:00 AM [facility]) [id number] Hyperlipidemia Hyperlipidemia Problem 03/20/2017 [place] ([place] (disorder) 12:00:00 AM [facility]) [id number] Hyperlipidemia Hyperlipidemia Problem 03/20/2017 [place] ([place] (disorder) 12:00:00 AM [facility]) [id number] Hyperlipidemia Hyperlipidemia Problem 03/20/2017 [place] ([place] (disorder) 12:00:00 AM [facility]) 17742137 Hyperlipidemia Hyperlipidemia Problem 03/20/2017 [place] ([place] (disorder) 12:00:00 AM [facility]) [id number] Hyperlipidemia Hyperlipidemia Problem 03/20/2017 [place] ([place] (disorder) 12:00:00 AM [facility]) [id number] Hyperlipidemia Hyperlipidemia Problem 03/20/2017 [place] ([place] (disorder) 12:00:00 AM [facility]) [id number] Hyperlipidemia Hyperlipidemia Problem 03/20/2017 [place] ([place] (disorder) 12:00:00 [facility]) [id number] Hyperlipidemia Hyperlipidemia Problem 03/20/2017 [place] ([place] (disorder) 12:00:00 AM [facility]) [id number] Hyperlipidemia Hyperlipidemia Problem 03/20/2017 [place] ([place] (disorder) 12:00:00 AM [facility]) 63131894 Hyperlipidemia Hyperlipidemia Problem 03/20/2017 [place] ([place] (disorder) 12:00:00 AM [facility]) [id number] Hyperlipidemia Hyperlipidemia Problem 03/20/2017 [place] ([place] (disorder) 12:00:00 AM [facility]) 40997490 Hyperlipidemia Hyperlipidemia Problem 03/20/2017 [place] ([place] (disorder) 12:00:00 AM [facility]) [id number] Hyperlipidemia Hyperlipidemia Problem 03/20/2017 [place] ([place] (disorder) 12:00:00 AM [facility]) [id number] Hyperlipidemia Hyperlipidemia Problem 03/20/2017 [place] ([place] (disorder) 12:00:00 AM [facility]) [id number] Hyperlipidemia Hyperlipidemia Problem 03/20/2017 [place] ([place] (disorder) 12:00:00 AM [facility]) 65238695 Hyperlipidemia Hyperlipidemia Problem 03/20/2017 [place] ([place] (disorder) 12:00:00 AM [facility]) [id number] Hyperlipidemia Hyperlipidemia Problem 03/20/2017 [place] ([place] (disorder) 12:00:00 AM [facility]) [id number] Hyperlipidemia Hyperlipidemia Problem 03/20/2017 [place] ([place] (disorder) 12:00:00 AM [facility]) 15032509 Hyperlipidemia Hyperlipidemia Problem 03/20/2017 [place] ([place] (disorder) 12:00:00 AM [facility]) [id number] Hyperlipidemia Hyperlipidemia Problem 03/20/2017 [place] ([place] (disorder) 12:00:00 AM [facility]) [id number] Hypertensive Hypertension Problem 02/17/2003 [place] ( [place] disorder, systemic (systemic) 12:00:00 AM [place] [facility] (disorder) [facility] [place]) 46280746 Hypertensive Hypertension Problem 02/17/2003 [place] ( [place] disorder, systemic (systemic) 12:00:00 AM [place] [facility] (disorder) [facility] [place]) 50085421 Hypertensive Hypertension Problem 02/17/2003 [place] ( [place] disorder, systemic (systemic) 12:00:00 AM [place] [facility]order[facility]) 54623564 Hypertensive Hypertension Problem 02/17/2003 [place] ( [place] disorder, systemic (systemic) 12:00:00 AM [place] [facility]order[facility]) [id number] Hypertensive Hypertension Problem 02/17/2003 [place] ( [place] disorder, systemic (systemic) 12:00:00 AM [place] [facility]order[facility]) 69738745 Hypertensive Hypertension Problem 02/17/2003 [place] ( [place] disorder, systemic (systemic) 12:00:00 AM [place] [facility]order[facility]) [id number] Hypertensive Hypertension Problem 02/17/2003 [place] ( [place] disorder, systemic (systemic) 12:00:00 AM [place] [facility]order[facility]) [id number] Hypertensive Hypertension Problem 02/17/2003 [place] ( [place] disorder, systemic (systemic) 12:00:00 AM [place] [facility]order[facility]) [id number] Hypertensive Hypertension Problem 02/17/2003 [place] ( [place] disorder, systemic (systemic) 12:00:00 AM [place] [facility]) 11365906 Hypertensive Hypertension Problem 02/17/2003 [place] ( [place] disorder, systemic (systemic) 12:00:00 AM [place] [facility]order[facility]) 58388292 Hypertensive Hypertension Problem 02/17/2003 [place] ( [place] disorder, systemic (systemic) 12:00:00 AM [place] [facility]order[facility]) 08872280 Hypertensive Hypertension Problem 02/17/2003 [place] ( [place] disorder, systemic (systemic) 12:00:00 AM [place] [facility]) [id number] Hypertensive Hypertension Problem 02/17/2003 [place] ( [place] disorder, systemic (systemic) 12:00:00 AM [place] [facility]order[facility]) [id number] Hypertensive Hypertension Problem 02/17/2003 [place] ( [place] disorder, systemic (systemic) 12:00:00 AM [place] [facility]) 39499403 Hypertensive Hypertension Problem 02/17/2003 [place] ( [place] disorder, systemic (systemic) 12:00:00 AM [place] [facility]) [id number] Hypertensive Hypertension Problem 02/17/2003 [place] ( [place] disorder, systemic (systemic) 12:00:00 AM [place] [facility]order[facility]) [id number] Hypertensive Hypertension Problem 02/17/2003 [place] ( [place] disorder, systemic (systemic) 12:00:00 AM [place] [facility]order[facility]) 81234963 Hypertensive Hypertension Problem 02/17/2003 [place] ( [place] disorder, systemic (systemic) 12:00:00 AM [place] [facility]order[facility]) 46898794 Hypertensive Hypertension Problem 02/17/2003 [place] ( [place] disorder, systemic (systemic) 12:00:00 AM [place] [facility]order[facility]) 18550150 Hypertensive Hypertension Problem 02/17/2003 [place] ( [place] disorder, systemic (systemic) 12:00:00 AM [place] [facility]order[facility]) 40221499 Hypertensive Hypertension Problem 02/17/2003 [place] ( [place] disorder, systemic (systemic) 12:00:00 AM [place] [facility]order[facility]) [id number] Hypertensive Hypertension Problem 02/17/2003 [place] ( [place] disorder, systemic (systemic) 12:00:00 AM [place] [facility]order[facility]) 43588034 Hypertensive Hypertension Problem 02/17/2003 [place] ( [place] disorder, systemic (systemic) 12:00:00 AM [place] [facility]order[facility]) 68814222 Hypertensive Hypertension Problem 02/17/2003 [place] ( [place] disorder, systemic (systemic) 12:00:00 AM [place] [facility]order[facility]) 06225535 Hypertensive Hypertension Problem 02/17/2003 [place] ( [place] disorder, systemic (systemic) 12:00:00 AM [place] [facility]order[facility]) 59332421 Hypertensive Hypertension Problem 02/17/2003 [place] ( [place] disorder, systemic (systemic) 12:00:00 AM [place] [facility]order[facility]) 72887229 Hypertensive Hypertension Problem 02/17/2003 [place] ( [place] disorder, systemic (systemic) 12:00:00 AM [place] [facility]order[facility]) 79192298 Hypertensive Hypertension Problem 02/17/2003 [place] ( [place] disorder, systemic (systemic) 12:00:00 AM [place] [facility]order[facility]) 97757147 Hypertensive Hypertension Problem 02/17/2003 [place] ( [place] disorder, systemic (systemic) 12:00:00 AM [place] [facility]order[facility]) 00985740 Hypertensive Hypertension Problem 02/17/2003 [place] ( [place] disorder, systemic (systemic) 12:00:00 AM [place] [facility]order[facility]) 94251962 Hypertensive Hypertension Problem 02/17/2003 [place] ( [place] disorder, systemic (systemic) 12:00:00 AM [place] [facility]order[facility]) 60809235 Hypertensive Hypertension Problem 02/17/2003 [place] ( [place] disorder, systemic (systemic) 12:00:00 AM [place] [facility]order[facility]) [id number] Hypertensive Hypertension Problem 02/17/2003 [place] ( [facility] disorder, systemic (systemic) 12:00:00 AM [place] [facility] (disorder) [facility] [place]) [id number] Hypertensive Hypertension Problem 02/17/2003 [place] ( [facility] disorder, systemic (systemic) 12:00:00 AM [place] [facility] (disorder) [facility]) [id number] Hypertensive Hypertension Problem 02/17/2003 [place] ( [facility] disorder, systemic (systemic) 12:00:00 AM [place] [facility] (disorder) [facility]) I10 Essential ESSENTIAL Diagnosis 11/09/2019 [facility] (primary) (PRIMARY) 10:08:00 AM [facility] hypertension HYPERTENSION EDT R06.02 Shortness of SHORTNESS OF Diagnosis 11/09/2019 [facility] phs breath BREATH 10:08:00 AM [facility] EDT Z01.810 Encounter for ENCOUNTER FOR Diagnosis 11/09/2019 [facility] preprocedural PREPROCEDURAL 10:08:00 AM [facility] [place] cardiovascular CARDIOVASCULAR EDT examination EXAMINATION I83.812 Varicose veins of VARICOSE VEINS OF Diagnosis 11/04/2019 [facility] left lower LEFT LOWER 03:18:00 PM [facility] extremity with EXTREMITY WITH EDT pain PAIN Z01.818 Encounter for ENCOUNTER FOR Diagnosis 11/04/2019 [facility] other OTHER 10:53:00 AM [facility] preprocedural PREPROCEDURAL EDT examination EXAMINATION K57.30 Diverticulosis of DVRTCLOS OF LG INT Diagnosis 04/03/2019 [facility] [place] large intestine W/O PERFORATION OR 07:58:00 AM [facility] without ABSCESS W/O EST perforation or BLEEDING abscess without bleeding K64.8 Other hemorrhoids OTHER HEMORRHOIDS Diagnosis 04/03/2019 [facility] 07:58:00 AM [facility] EST Z12.11 Encounter for ENCOUNTER FOR Diagnosis 04/03/2019 [facility] screening for SCREENING FOR 07:58:00 AM [facility] Center malignant neoplasm MALIGNANT NEOPLASM EST of colon OF COLON K29.50 Unspecified UNSPECIFIED Diagnosis 04/03/2019 [facility] chronic gastritis CHRONIC GASTRITIS 07:58:00 AM Medical Center without bleeding WITHOUT BLEEDING EST K21.9 Gastro-esophageal GASTRO-ESOPHAGEAL Diagnosis 03/25/2019 [facility] [place] reflux disease REFLUX DISEASE 01:31:00 PM Medic al Center without WITHOUT EST esophagitis ESOPHAGITIS M25.511 Pain in right PAIN IN RIGHT Diagnosis 03/10/2019 [facility] shoulder SHOULDER 08:52:00 AM [facility] EST M25.50 Pain in PAIN IN Diagnosis 03/10/2019 [facility] unspecified joint UNSPECIFIED JOINT 08:52:00 AM Medical Center EST H52.03 Hypermetropia, Hypermetropia, Diagnosis 04/18/2018 [place] ([facility] bilateral bilateral 03:43:51 PM [facility]) H25.89 Other age-related Other age-related Diagnosis 04/18/2018 [place] ([facility] cataract cataract 03:43:51 PM [facility]) H53.8 Other visual Other visual Diagnosis 04/18/2018 [place] ( [facility] disturbances disturbances 03:43:51 PM [facility]) Surgeries/Procedures Procedure Description Date Indications Data Source(s) OFFICE/OUTPATIENT 11/04/2019 [facility] (S aint VISIT, EST 12:00:00 AM [facility]) 11/04/2019 12:00:00 AM EDT OFFICE/OUTPATIENT 09/09/2019 [facility] (S aint VISIT, EST 12:00:00 AM [facility]) 09/09/2019 12:00:00 AM EDT [facility] 07/20/2019 [facility] ([facility] ([facility]) GCode 12:00:00 AM [facility] visit, established [facility] nter) patient; a medically-necessary, [id number] encounter (one-on-one) between an established patient and a [facility] practitioner during which time one or more [facility] services are rendered and includes a typical bundle of medicare-covered services that would be furnished director property to a patient receiving a [facility] visit HEPATITIS C ANTIBODY HEPATITIS C ANTIBODY 05/17/2019 [place] ([place] 12:00:00 AM [facility]) VARICELLA - ZOSTER VARICELLA - ZOSTER 05/17/2019 [facility] ([place] 12:00:00 AM [facility]) HEPATITIS B SURFACE HEPATITIS B SURFACE 05/17/2019 [place] ([facility] ANTIBODY (HBsAb) ANTIBODY (HBsAb) 12:00:00 AM [facility]) RUBELLA TITER RUBELLA TITER 05/17/2019 [place] ([place] 12:[place]:00 AM [facility]) HEPATITIS B CORE HEPATITIS B CORE 05/17/2019 [place] ([facility] ANTIBODY (HBcAb); ANTIBODY (HBcAb); 12:00:00 AM [facility] n [facility] TOTAL TOTAL [facility]) MEASLES RUBEOLA MEASLES RUBEOLA 05/17/2019 [place] ([facility] ANTIBODY ANTIBODY 12:00:00 AM [facility]) HEPATITIS B SURFACE HEPATITIS B SURFACE AG 05/17/2019 [place] ([place] 12:00:00 AM [facility]) MUMPS ANTIBODY MUMPS ANTIBODY 05/17/2019 [place] (M ount 12:00:00 AM [facility]) QUANTIFERON QUANTIFERON 05/17/2019 [place] ([facility] TUBERCULOSIS TEST, TUBERCULOSIS TEST, 12:00:[address] [facility] CELL MEDIATED CELL MEDIATED IMMUNITY [facility]) IMMUNITY AG RES AG RES DRUG SCREEN (URINE) DRUG SCREEN (URINE) 05/17/2019 [place] ([facility] 12:00:00 AM [facility]) Past medical history Past medical history 05/11/2019 [place] ([facility] G2 L2 M0 A0 G2 L2 M0 A0 12:00:00 AM [facility]) No history of surgery No history of surgery 05/11/2019 [place] ([facility] 12:00:00 AM [facility]) Sign language or oral Sign language or Oral 05/11/2019 [place] ([facility] interpretive Interpretation per 15 12:00:00 AM [facility] services, per 15 Minutes [facility] er) minutes Bmi is documented BMI > NORMAL 05/11/2019 [place] ([facility] above normal DOCUMENTED W F/U PLAN 12:00:00 AM [facility] parameters and a [facility] er) follow-up plan is documented STOOL OCCULT BLOOD STOOL OCCULT BLOOD 05/11/2019 [facility] ([facility] 12:00:00 AM [facility]) Federally qualified [facility] Medicare Wrap 05/11/2019 [facility] ([facility] (hc) GCode 12:00:00 AM [facility] visit, established [facility] Health Ce nter) patient; a medically-necessary, dltm-kf-mthc encounter (one-on-one) between an established patient and a [facility] practitioner during which time one or more [facility] services are rendered and includes a typical bundle of medicare-covered services that would be furnished director property to a patient receiving a [facility] visit Annual depression DEPRESSION SCREENING 05/11/2019 GR EENDICKSON ([facility] screening, 15 minutes (15 MINS) (Distinct 12:00:00 AM [facility] Procedural Service) EDT Health C enter) VISUAL ACUITY SCREEN VISUAL ACUITY SCREEN 05/11/2019 RANJEET ([facility] 12:00:00 AM [facility]) ANTINUCLEAR ANTINUCLEAR 03/27/2019 [place] ([facility] ANTIBODIES (MONAE) ANTIBODIES (MONAE) 12:00:00 AM [facility]) RH FACTOR/RHEUMATOID RH FACTOR/RHEUMATOID 03/27/2019 [place] ([facility] 12:00:[address] [facility]) VITAMIN D 25 - VITAMIN D 25 - 03/27/2019 [place] ([facility] HYDROXY HYDROXY 12:00:[address] [facility]) SED RATE (ESR) SED RATE (ESR) 03/27/2019 [place] (M ount 12:00:[address] [facility]) OFFICE/OUTPATIENT 03/25/2019 NEXTGEN (S aint VISIT, NEW 12:00:00 AM [facility]) 03/25/2019 12:00:00 AM [facility] 03/25/2019 [place] ENWAY ([facility] (hc) GCode 12:00:00 AM [facility] visit, established [facility] Health Ce nter) patient; a medically-necessary, tlpi-vc-qvrf encounter (one-on-one) between an established patient and a [facility] practitioner during which time one or more [facility] services are rendered and includes a typical bundle of medicare-covered services that would be furnished director property to a patient receiving a [facility] visit Sign language or oral Sign language or Oral 03/25/2019 [place] ([facility] interpretive Interpretation per 15 12:00:00 AM [facility] services, per 15 Minutes [facility] er) minutes HEMOGLOBIN A1C HEMOGLOBIN A1C 03/14/2019 RANJEET ([facility] 12:00:[address] [facility]) LIPID PANEL LIPID PANEL 03/14/2019 [place] ([facility] 12:00:[address] [facility]) METABOLIC PANEL METABOLIC PANEL 03/14/2019 RANJEET ([facility] COMPREHE COMPREHE 12:00:[address] [facility]) [facility] qualified [facility] Medicare Wrap 03/10/2019 JEN HERNANDEZ ([facility] ([facility]) GCode 12:00:00 AM [facility] visit, established [facility] nt) patient; a medically-necessary, tpds-dt-gjlu encounter (one-on-one) between an established patient and a [facility] practitioner during which time one or more fq services are rendered and includes a typical bundle of medicare-covered services that would be furnished director property to a patient receiving a fqhc visit [facility] qualified [facility] Medicare Wrap 03/06/2019 [facility] ([facility]) GCode 12:00:00 AM [facility] visit, [facility]) patient; a medically-necessary, ypvv-fb-edfs encounter (one-on-one) between an established patient and a fq practitioner during which time one or more fqhc services are rendered and includes a typical bundle of medicare-covered services that would be furnished director property to a patient receiving a fq visit Bmi documented BMI OUTSIDE NORMAL 03/06/2019 SAADIA Y ([facility] outside normal RANGE - NO F/U PLAN 12:00:00 AM [facility] parameters, no [facility] ) follow-up plan documented, no reason given Sign language or oral Sign language or Oral 03/06/2019 RANJEET ([facility] interpretive Interpretation per 15 12:00:00 AM [facility] services, per 15 Minutes (Distinct [facility]) minutes Procedural Service) [facility] qualified [facility] Medicare Wrap 03/06/2019 [facility] ([facility] ([facility]) GCode 12:00:00 AM [facility] visit, [facility] nt) patient; a medically-necessary, iuxp-uf-nyny encounter (one-on-one) between an established patient and a [facility] practitioner during which time one or more [facility] services are rendered and includes a typical bundle of medicare-covered services that would be furnished director property to a patient receiving a fq visit US ABDOMINAL REAL ABDOMINAL 4 QUADS 03/03/[address] ([facility] TIME W/IMAGE ULTRASOUND 12:00:00 AM [facility] DOCUMENTATION [facility]) HELICOBACTER PYLORI, HELICOBACTER PYLORI, 03/01/2019 RANJEET ([facility] STOOL STOOL 12:00:[address] [facility]) Sign language or oral Sign language or Oral 02/25/2019 RANJEET ([facility] interpretive Interpretation per 15 12:00:00 AM [facility] services, per 15 Minutes [facility] er) minutes URINE C AND S URINE C AND S 02/25/2019 RANJEET (Carol nt 12:00:[address] [facility]) Bmi documented BMI OUTSIDE NORMAL 02/25/2019 KAREENMN Y ([facility] outside normal RANGE - NO F/U PLAN 12:00:00 AM [facility] parameters, no [facility] ) follow-up plan documented, no reason given URINALYSIS URINALYSIS MICROSCOPIC 02/25/2019 [facility] ([facility] MICROSCOPIC 12:00:[address] [facility]) [facility] qualified [facility] Medicare Wrap 02/25/2019 JEN VALERIDICKSON ([facility] ([facility]) GCode 12:00:00 AM [facility] visit, established [facility] Health nter) patient; a medically-necessary, hgpu-qc-ruoz encounter (one-on-one) between an established patient and a fqhc practitioner during which time one or more fqhc services are rendered and includes a typical bundle of medicare-covered services that would be furnished director property to a patient receiving a fqhc visit [facility] Medicare Wrap 02/25/2019 JEN VALERIDICKSON ([facility] ([facility]) GCode 12:00:00 AM [facility] visit, established [facility] Health nter) patient; a medically-necessary, acwj-zn-bbet encounter (one-on-one) between an established patient and a fqhc practitioner during which time one or more fqhc services are rendered and includes a typical bundle of medicare-covered services that would be furnished director property to a patient receiving a fqhc visit [facility] Medicare Wrap 02/03/2019 [facility] ([facility] ([facility]) GCode 12:00:00 AM [facility] visit, established EST Health nter) patient; a medically-necessary, pcot-px-rkzj encounter (one-on-one) between an established patient and a fq practitioner during which time one or more fqhc services are rendered and includes a typical bundle of medicare-covered services that would be furnished director property to a patient receiving a fq visit [facility] qualified [facility] Medicare Wrap 02/03/2019 JEN HERNANDEZ ([facility] ([facility]) GCode 12:00:00 AM [facility] visit, [facility] Health nter) patient; a medically-necessary, xeni-ch-eobc encounter (one-on-one) between an established patient and a fq practitioner during which time one or more fqhc services are rendered and includes a typical bundle of medicare-covered services that would be furnished director property to a patient receiving a fq visit Sign language or oral Sign language or Oral 02/03/2019 RANJEET ([facility] interpretive Interpretation per 15 12:00:00 AM [facility] services, per 15 Minutes EST Health Cent er) minutes [facility] qualified [facility] Medicare Wrap 01/27/2019 JEN HERNANDEZ ([facility] ([facility]) GCode 12:00:00 AM [facility] visit, [facility] er EST Health Ce nter) patient; a medically-necessary, nsqd-av-xjnt encounter (one-on-one) between an established patient and a [facility] practitioner during which time one or more fqhc services are rendered and includes a typical bundle of medicare-covered services that would be furnished director property to a patient receiving a fq visit Sign language or oral Sign language or Oral 01/27/2019 [place] ([facility] interpretive Interpretation per 15 12:00:00 AM [facility] services, per 15 Minutes EST Health Cent er) minutes TSH-THYROID TSH-THYROID 01/27/2019 [place] ([facility] STIMULATING STIMULATING 12:00:[address] [facility]) [facility] qualified [facility] Medicare Wrap 01/27/2019 JEN HERNANDEZ ([facility] ([facility]) GCode 12:00:00 AM [facility] visit, [facility] Health nter) patient; a medically-necessary, oswo-by-hdyy encounter (one-on-one) between an established patient and a [facility] practitioner during which time one or more fq services are rendered and includes a typical bundle of medicare-covered services that would be furnished director property to a patient receiving a fq visit [id number] 01/27/[address] ([facility] 12:00:[address] [facility]) NUTRITION THERAPY NUTRITION THERAPY 01/27/[address] ([facility] INITIAL INITIAL 12:00:[address] [facility]) OFFICE/OUTPATIENT 01/14/2019 DOMI (Lin aint VISIT, NEW 12:00:00 AM [facility]) 01/14/2019 12:00:00 AM [facility] Medicare Wrap 01/02/2019 JEN HERNANDEZ ([facility] ([facility]) GCode 12:00:00 AM [facility] visit, established [facility] nter) patient; a medically-necessary, grhe-ni-nsbn encounter (one-on-one) between an established patient and a fq practitioner during which time one or more fqhc services are rendered and includes a typical bundle of medicare-covered services that would be furnished director property to a patient receiving a fqhc visit [facility] Medicare Wrap 01/02/2019 JEN HERNANDEZ ([facility] ([facility]) GCode 12:00:00 AM [facility] visit, established [facility] nt) patient; a medically-necessary, htap-en-zhgn encounter (one-on-one) between an established patient and a fqhc practitioner during which time one or more fqhc services are rendered and includes a typical bundle of medicare-covered services that would be furnished director property to a patient receiving a fq visit Sign language or oral Sign language or Oral 01/02/2019 RANJEET ([facility] interpretive Interpretation per 15 12:00:00 AM [facility] services, per 15 Minutes [facility] er) minutes Bmi documented BMI OUTSIDE NORMAL 01/02/2019 SAADIA Y ([facility] outside normal RANGE - NO F/U PLAN 12:00:00 AM [facility] parameters, no [facility] Health Center ) follow-up plan documented, no reason given [facility] Medicare Wrap 12/19/2018 JEN HERNANDEZ ([facility] ([facility]) GCode 12:00:00 AM [facility] visit, established ED Health nter) patient; a medically-necessary, vcil-pv-yjym encounter (one-on-one) between an established patient and a [facility] practitioner during which time one or more fq services are rendered and includes a typical bundle of medicare-covered services that would be furnished director property to a patient receiving a fqhc visit [facility] qualified [facility] Medicare Wrap 12/19/2018 JEN HERNANDEZ ([facility] ([facility]) GCode 12:00:00 AM [facility] visit, established [facility] Ce nter) patient; a medically-necessary, mszl-uf-gcwo encounter (one-on-one) between an established patient and a [facility] practitioner during which time one or more [facility] services are rendered and includes a typical bundle of medicare-covered services that would be furnished director property to a patient receiving a [facility] visit No prior serious No prior serious 12/17/2018 SAADIA Y ([facility] illness illness 12:00:00 AM [facility]) History of Eyes: History of Eyes: 12/17/2018 SAADIA Shay ([facility] normal normal 12:00:00 AM [facility]) HEMOGLOBIN A1C HEMOGLOBIN A1C 12/15/2018 RANJEET ([facility] 12:00:00 AM [facility]) METABOLIC PANEL METABOLIC PANEL 12/15/2018 [place] ([facility] COMPREHE COMPREHE 12:00:00 AM [facility]) Bmi is documented BMI > NORMAL 12/15/2018 RANJEET ([facility] above normal DOCUMENTED W F/U PLAN 12:00:00 AM [facility] parameters and a [facility] er) follow-up plan is documented Sign language or oral Sign language or Oral 12/15/2018 RANJEET ([facility] interpretive Interpretation per 15 12:00:00 AM [facility] services, per 15 Minutes [facility] er) minutes VISUAL ACUITY SCREEN VISUAL ACUITY SCREEN 12/15/2018 RANJEET ([facility] 12:00:00 AM [facility]) [id number] 12/15/2018 [facility] ([facility] 12:00:00 AM [facility]) MICROALBUMIN URINE MICROALBUMIN URINE 12/15/2018 [facility] 12:00:00 AM [facility]) LIPID PANEL LIPID PANEL 12/15/2018 RANJEET ([facility] 12:00:00 AM [facility]) Results ID Date Data Source [id number] 11/20/2019 01:05:00 PM EDT [facility] Name Value Range Interpretation Description Data Sup porting Code Source(s) Document(s ) SARS [facility] coronavirus 2 RNA This lab was ordered by [facility] and reported by [facility]. ID Date Data Source cvc ecg 11/09/2019 04:11:07 AM EDT eCW1 ([facility]) Name Value Range Interpretation Code Description Data Sofiya rce(s) Supporting Document(s ) cvc ecg eCW1 ([facility]) ID Date Data Source [id number] 09/28/2019 02:05:00 PM EDT [facility] Name Value Range Interpretation Code Description Data Sofiya rce(s) Supporting Document(s ) SARS-CoV-2 [facility] Ql LÓPEZ+probe This lab was ordered by [facility] a nd reported by [facility]. ID Date Data Source [id number] 05/15/2019 10:10:00 AM EDT RANJEET ([facility]) Name Value Range Interpretation Description Data Source(s ) Supporting Code Document(s ) Service See Note QuantiFERON RANJEET ([facility]) Note: The QuantiFERON-TB Gold Plus resul t is determined by subtractingthe Nil value from either TB antigen (Ag) tube. The mi togen tubeserves as a control for the test. QuantiFERON TB2 Ag 0.44 IU/mL QuantiFERON TB2 Ag G REENWAY ([facility]) QuantiFERON TB1 Ag 0.39 IU/mL QuantiFERON TB1 Ag G [facility] ([facility]) Gamma interferon 0.25 IU/mL QuantiFERON Nil GREENW AY ([facility] background [facility] [Units/volume] in [facility]) Blood by Immunoassay QuantiFERON Incubation QuantiFERON RANJEET ([facility] Incubation performed. Incubation [facility]) QuantiFERON-TB Gold Negative QuantiFERON-TB Gold RANJEET ([facility] Plus [facility]) QuantiFERON Mitogen >10.00 IU/mL QuantiFERON Mitog en RANJEET ([facility]) ID Date Data Source [id number] 05/15/2019 10:06:00 AM EDT RANJEET ([facility]) Name Value Range Interpretation Description Data Source(s ) Supporting Code Document(s ) Hepatitis B Negative Hep B Core RANJEET virus core Ab Ab, Tot ([place] [Presence] in [facility] Serum or Health Center) Plasma by Immunoassay ID Date Data Source [id number] 05/15/2019 10:06:00 [facility] Name Value Range Interpretation Description Data Source(s ) Supporting Code Document(s ) Hepatitis B Negative HBsAg Screen RANJEET virus surface (Kathya Lujan Ag [Presence] Neighborhood in Serum or Health Center) Plasma by Immunoassay ID Date Data Source [id number] 05/15/2019 10:06:00 AM EDT RANJEET ([facility]) Name Value Range Interpretation Description Data Source(s ) Supporting Code Document(s ) Hepatitis C 0.1 Hep C Virus [place] virus Ab s/co_rat Ab ([place] Signal/Cutoff io Neighborhood in Serum or Health Center) Plasma by Immunoassay Note: Negative: < 0.8 Indeterm inate: 0.8 - 0.9 Positive: > 0.9 The CDC recommends that a positive HCV antibody result be followed up with a HCV Nucleic Acid Amplification test (47689 3). ID Date Data Source [id number] 05/15/2019 10:06:00 AM EDT [place] ([facility]) Name Value Range Interpretation Description Data Source(s ) Supporting Code Document(s ) Measles virus >300.0 Measles [place] IgG Ab AU/mL Antibodies, ([place] [Units/volume] IgG Neighborhood in Serum by [facility]) Immunoassay Note: Negative <13.5 Equ ivocal 13.5 - 16.4 Positive >16. 4 Presence of antibodies to Rubeola is presumptive evidence of immunity except when acute infection is suspected. ID Date Data Source [id number] 05/15/2019 10:06:00 [facility]) Name Value Range Interpretation Description Data Source(s ) Supporting Code Document(s ) Mumps virus 86.4 Mumps Abs, [place] IgG Ab AU/mL IgG ([place] [Units/volume] Neighborhood in Serum by [facility]) Immunoassay Note: Negative <9.0 Equiv ocal 9.0 - 10.9 Positive >10.9 A positive result generally indicates past exposure to Mumps virus or previous vaccination. ID Date Data Source [id number] 05/15/2019 10:06:00 [facility]) Name Value Range Interpretation Description Data Source(s ) Supporting Code Document(s ) Varicella 1624 Varicella [place] zoster virus index Zoster IgG ([employer] IgG Ab [facility] [Units/volume] [facility]) in Serum by Immunoassay Note: Negative <135 Equivo jorje 135 - 165 Positive >165 A positive result generally indicates exposure to the pathogen or administration of specific immunoglobulins, but it is not indication of active infection or stage of disease. ID Date Data Source [id number] 05/15/2019 10:06:00 [facility]) Name Value Range Interpretation Description Data Source(s ) Supporting Code Document(s ) HIV 1+2 Non HIV Screen RANJEET Ab+HIV1 p24 Reactive 4th ([place] Ag [Presence] Generation Neighborhood in Serum or [facility]) Plasma by Immunoassay ID Date Data Source [id number] 05/15/2019 10:06:00 AM [facility] ([facility]) Name Value Range Interpretation Description Data Source(s ) Supporting Code Document(s ) Hepatitis B Reactive Hep B Surface RANJEET virus Ab, Qual ([employer] surface Ab [facility] [Presence] [facility]) in Serum Note: Non R eactive: Inconsistent with immunity, less th an 10 mIU/mL Reactive: Consistent with immunity, greater than 9.9 mIU/mL ID Date Data Source [id number] 05/15/2019 10:06:00 AM EDT [place] ([facility]) Name Value Range Interpretation Description Data Source(s ) Supporting Code Document(s ) Rubella virus 25.20 Rubella [place] IgG Ab index Antibodies, ([employer] [Units/volume] IgG Neighborhood in Serum or Health Center) Plasma by Immunoassay Note: Non-immune <0.90 Equi vocal 0.90 - 0.99 Immune >0.9 9 ID Date Data Source [id number] 05/15/2019 10:06:00 [facility]) Name Value Range Interpretation Description Data Source(s ) Supporting Code Document(s ) Chlamydia Negative Chlamydia [place] trachomatis trachomatis, ([place] rRNA [Presence] L[place]PEZ Neighborhood in [facility]) specimen by Probe and target amplification method [employer] Negative Neisseria [place] gonorrhoeae gonorrhoeae, (Salcha rRNA [Presence] LÓPEZ [facility] specimen by Probe and target amplification method ID Date Data Source [id number] 05/15/2019 10:06:00 AM EDT RANJEET ([facility]) Name Value Range Interpretation Description Data Sup porting Code Source(s) Document(s ) Benzoylecgonine Negative Cocaine RANJEET [Presence] in ng/mL (Metab.) ([facility]) Opiates Negative Opiates RANJEET [Presence] in ng/mL ([facility]) Note: Opiate test includes Codeine and M orphine only. Benzodiazepines Negative ng/mL Benzodiazepines GRE ENWAY ([place] [Presence] in Urine [facility]) Barbiturates [Presence] Negative ng/mL Barbiturate RANJEET (Mount in Urine by Screen [facility]) Phencyclidine [Presence] Negative ng/mL Phencyclid ine RANJEET ([place] in Urine [facility]) Propoxyphene [Presence] Negative ng/mL Propoxyphen e, Urine RANJEET ([place] in Urine [facility]) Cannabinoids [Presence] Negative ng/mL Cannabinoid RANJEET ([place] in Urine by Screen [facility]) Amphetamines [Presence] Negative ng/mL Amphetamine s, Urine RANJEET ([place] in Urine by Screen [facility]) Note: Amphetamine test includes Amphetam ine and Methamphetamine. Methadone [Presence] Negative ng/mL Methadone Scre en, RANJEET ([place] in Urine by Screen Urine [facility]) Ethanol [Mass/volume] Negative % Ethanol, Urine GR EENWAY (Sal[place] in [facility]) ID Date Data Source [id number] 03/25/2019 11:01:00 AM EST RANJEET ([facility]) Name Value Range Interpretation Description Data Sup porting Code Source(s) Document(s ) Nuclear Ab [Titer] Negative Antinuclear RANJEET in Serum by Antibodies, (Salcha Immunofluorescence IFA [facility]) Note: Negative <1:80 Borderline 1:80 Positive >1:80 ID Date Data Source [id number] 03/25/2019 11:01:00 AM EST RANJEET ([facility]) Name Value Range Interpretation Description Data Source(s ) Supporting Code Document(s ) Calcidiol 30.2 Vitamin D, RANJEET (Mount [Mass/volume ng/mL 25-Hydroxy Tai ] in Serum [facility] or [facility]) Note: Vitamin D deficiency has been defi ashwin by the [place] [employer] and an Endocrine Society practice guideline as alevel of serum 25-OH vitamin D less than 20 ng/mL (1,2).The Endocrine Society went o n to further define vitamin Dinsufficiency as a level between 21 and 29 ng/mL (2).1. I OM ([place] [employer]). 2010. Dietary reference intakes for calcium and D. [place]: The National Academies Press.2. Colt MF, Della NC, Kristy Benedict MORENO, et al. Evaluation, treatment, and prevention of vitamin D deficiency : an Endocrine Society clinical practice guideline. JCEM. 2010; 96(7):1911-30 . ID Date Data Source [id number] 03/25/2019 11:01:00 AM EST RANJEET ([facility]) Name Value Range Interpretation Description Data Source(s ) Supporting Code Document(s ) Rheumatoid <10.0 RA Latex RANJEET factor IU/mL Turbid. ([place] [Units/volume Neighborhood ] in Serum or [facility] [place]) Plasma ID Date Data Source [id number] 03/13/2019 08:50:00 AM EST RANJEET ([facility]) Name Value Range Interpretation Description Data Source(s ) Supporting Code Document(s ) Hemoglobin 6.0 % Above high normal Hemoglobin A1c GREEN AY ([facility] A1c/Hemoglobi Tai n.total in [facility] Blood [facility]) Note: Prediabetes: 5.7 - 6.4 Diabetes: >6.4 Glycemic control for adults with diabetes: <7.0 ID Date Data Source [id number] 03/13/2019 08:50:00 AM EST RANJEET ([facility]) Name Value Range Interpretation Description Data Source(s ) Supporting Code Document(s ) Cholesterol 121 Cholesterol, RANJEET [Mass/volume] mg/dL Total ([place] in Serum or [facility]) Laboratory N/A Comment: RANJEET comment [Text] ([place] in Report [facility]) Triglyceride 63 Triglycerides RANJEET [Mass/volume] mg/dL ([place] in Serum or [facility] Plasma [facility]) Cholesterol in 48 HDL Cholesterol RANJEET HDL mg/dL ([place] [Mass/volume] Neighborhood in Serum or Health Center) Plasma Cholesterol in 1.3 LDL/HDL Ratio RANJEET LDL/Cholestero ratio (Salcha l in HDL [Mass Neighborhood Ratio] in [facility] [place]) Serum or Plasma Note: LDL/HDL Ratio Men Women 1/2 Avg.Risk 1.0 1.5 Avg.Risk 3.6 3.2 2X Avg.Risk 6.2 5.0 3X Avg.Risk 8.0 6.1 Cholesterol in LDL 60 mg/dL LDL Cholesterol Calc RANJEET ([place] [Mass/volume] in Serum or [facility] Plasma by calculation Center) Cholesterol in VLDL 13 mg/dL VLDL Cholesterol Jorje RANJEET ([place] [Mass/volume] in Serum or [facility] Plasma by calculation Center) ID Date Data Source [id number] 03/13/2019 08:50:00 AM EST RANJEET ([facility]) Name Value Range Interpretation Description Data Source(s ) Supporting Code Document(s ) Calcium 9.5 Calcium RANJEET ([facility] [Mass/volum mg/dL Tai e] in Serum [facility] or [facility]) Glucose 104 Above high normal Glucose RANJEET (Sc unt [Mass/volum mg/dL Tai e] in Serum [facility] or [facility]) Urea 14 mg/dL BUN RANJEET ([facility] nitrogen Tai [Mass/volum Neighborhood e] in [facility]) or Plasma Protein 6.6 g/dL Protein, Total RANJEET ([facility] [Mass/volum Tai e] in Serum [facility] or Plasma [facility]) Albumin 4.4 g/dL Albumin RANJEET ([facility] [Mass/volum Tai e] in Serum [facility] or [facility]) Note: Ple ase note reference interval change Aspartate 20 IU/L AST (SGOT) RANJEET ([facility] aminotransferase [place] [[facility]) activity/volume] in Serum or Plasma Alkaline phosphatase 66 IU/L Alkaline Phosphatas e RANJEET ([facility] [Enzymatic [place] Neighborhood activity/volume] in Serum [facility]) or Plasma Bilirubin.total 0.8 mg/dL Bilirubin, Total GREENWA Y ([facility] [Mass/volume] in Serum or Cal on [facility] Plasma [facility]) Chloride [Moles/volume] 104 mmol/L Chloride GREEN WAY ([facility] in Serum or Plasma [facility]) Potassium [Moles/volume] 4.7 mmol/L Potassium GREE NWAY ([facility] in Serum or Plasma [facility]) Sodium [Moles/volume] in 143 mmol/L Sodium GREE NWAY ([facility] Serum or Plasma [facility]) Creatinine [Mass/volume] 0.67 mg/dL Creatinine GRE ENWAY ([facility] in Serum or Plasma [facility]) Alanine aminotransferase 23 IU/L ALT (SGPT) GREE NWAY ([facility] [Enzymatic [facility] activity/volume] in Serum [facility]) or Plasma Carbon dioxide, total 25 mmol/L Carbon Dioxide, GR EENWAY ([facility] [Moles/volume] in Serum Total [facility] or [facility]) Urea nitrogen/Creatinine 21 BUN/Creatinine Ratio RANJEET ([facility] [Mass Ratio] in Serum or [facility]) Globulin [Mass/volume] in 2.2 g/dL Globulin, Tota l RANJEET ([facility] Serum by calculation [facility]) Albumin/Globulin [Mass 2.0 A/G Ratio GREENWA Y ([facility] Ratio] in Serum or Plasma [facility]) eGFR If NonAfricn Am 89 eGFR If NonAfricn A m RANJEET ([facility] mL/min/1.73 [facility]) eGFR If Africn Am 102 eGFR If Africn Am GREE NWAY ([facility] mL/min/1.73 [facility]) ID Date Data Source [id number] 02/27/2019 12:00:00 AM EST RANJEET ([facility]) Name Value Range Interpretation Description Data Source(s ) Supporting Code Document(s ) Helicobacter Negative H. pylori RANJEET pylori Ag Stool Ag, EIA ([place] [Presence] in [facility] Stool by [facility]) Immunoassay ID Date Data Source [id number] 02/25/2019 12:00:00 AM EST RANJEET ([facility]) Name Value Range Interpretation Description Data Source(s ) Supporting Code Document(s ) Bacteria Final Urine RANJEET identified in report Culture, (Salcha Urine by Routine [facility] Culture [facility]) Bacteria No growth Result 1 RANJEET identified in (Kathya Lujan Urine by [facility]) ID Date Data Source [id number] 01/27/2019 12:00:00 AM EST RANJEET ([facility]) Name Value Range Interpretation Description Data Source(s ) Supporting Code Document(s ) Thyrotropin 1.360 TSH RANJEET ([facility] [Units/volume] uIU/mL Tai in Serum or Neighborhood Plasma by [facility]) Detection limit <= 0.05 mIU/L ID Date Data Source [id number] 12/17/2018 09:51:50 AM EDT GREENWA Y (Salcha [id number] [facility]) Name Value Range Interpretation Description Data Source(s ) Supporting Code Document(s ) No Results No Results No Results RANJEET (Mount Recorded For Tai Specified [facility]) ID Date Data Source [id number] 12/16/2018 09:10:00 AM EDT RANJEET ([facility]) Name Value Range Interpretation Description Data Source(s ) Supporting Code Document(s ) Microalbumin 5.5 Albumin, RANJEET [Mass/volume] ug/mL Urine (Kathya Lujan in Urine [facility]) ID Date Data Source [id number] 12/16/2018 09:10:00 AM EDT RANJEET ([facility]) Name Value Range Interpretation Description Data Source(s ) Supporting Code Document(s ) Hemoglobin 6.2 % Above high normal Hemoglobin A1c KAREEN AY ([facility] A1c/Hemoglobi Tai n.total in [facility]) Note: Prediabetes: 5.7 - 6.4 Diabetes: >6.4 Glycemic control for adults with diabetes: <7.0 ID Date Data Source [id number] 12/16/2018 09:10:00 AM EDT RANJEET ([facility]) Name Value Range Interpretation Description Data Source(s ) Supporting Code Document(s ) Laboratory N/A Comment: RANJEET comment [Text] (Kathya Lujan in Report [facility]) Cholesterol in 58 HDL Cholesterol RANJEET HDL mg/dL (Kathya Lujan [Mass/volume] Neighborhood in Serum or [facility] [place]) Plasma Triglyceride 56 Triglycerides RANJEET [Mass/volume] mg/dL ([place] in Serum or [facility] Plasma [facility]) Cholesterol 123 Cholesterol, RANJEET [Mass/volume] mg/dL Total ([place] in Serum or [facility] Plasma [facility]) Cholesterol in 0.9 LDL/HDL Ratio RANJEET LDL/Cholestero ratio (Salcha l in HDL [Mass Neighborhood Ratio] in [facility]) Serum or Plasma Note: LDL/HDL Ratio Men Women 1/2 Avg.Risk 1.0 1.5 Avg.Risk 3.6 3.2 2X Avg.Risk 6.2 5.0 3X Avg.Risk 8.0 6.1 Cholesterol in VLDL 11 mg/dL VLDL Cholesterol Jorje RANJEET ([place] [Mass/volume] in Serum or [facility] Plasma by calculation Center) Cholesterol in LDL 54 mg/dL LDL Cholesterol Calc RANJEET ([place] [Mass/volume] in Serum or [facility] Plasma by calculation Center) ID Date Data Source [id number] 12/16/2018 09:10:00 AM EDT RANJEET ([facility]) Name Value Range Interpretation Description Data Sup porting Code Source(s) Document(s ) Glucose 97 Glucose RANJEET [Mass/volume] in mg/dL ([facility]) Urea nitrogen 16 BUN RANJEET [Mass/volume] in mg/dL ([facility]) Calcium 9.2 Calcium RANJEET [Mass/volume] in mg/dL ([facility]) Bilirubin.total 0.6 Bilirubin, RANJEET [Mass/volume] in mg/dL Total ([facility] or [facility]) Protein 6.4 Protein, RANJEET [Mass/volume] in g/dL Total ([facility] or [facility]) Albumin 4.2 Albumin RANJEET [Mass/volume] in g/dL ([facility] or [facility]) Alkaline 64 IU/L Alkaline RANJEET phosphatase Phosphatase ([place] [Enzymatic Neighborhood activity/volume] Health in Serum or [facility] [place]) Sodium 144 Sodium RANJEET [Moles/volume] in mmol/L ([facility] or [facility]) Potassium 4.6 Potassium RANJEET [Moles/volume] in mmol/L ([facility]) Chloride 108 Above high Chloride RANJEET [Moles/volume] in mmol/L normal ([place] Serum or [facility]) Aspartate 20 IU/L AST (SGOT) RANJEET aminotransferase ([place] [Enzymatic [facility] activity/volume] Health in Serum or Plasma Center) Alanine 22 IU/L ALT (SGPT) RANJEET aminotransferase ([place] [Enzymatic [facility] activity/volume] Health in Serum or Plasma Center) Creatinine 0.75 Creatinine RANJEET [Mass/volume] in mg/dL ([place] Serum or Plasma [facility]) Globulin 2.2 Globulin, RANJEET [Mass/volume] in g/dL Total ([place] Serum by [facility]) Carbon dioxide, 24 Carbon RANJEET total mmol/L Dioxide, ([place] [Moles/volume] in Total [facility] Serum or [facility]) Urea 21 BUN/Creatinin RANJEET nitrogen/Creatinin e Ratio ([facility] on e [Mass Ratio] in [facility] Serum or [facility]) eGFR If NonAfricn 80 eGFR If RANJEET Am mL/min/ NonAfricn Am ([address]) eGFR If Africn Am 93 eGFR If RANJEET mL/min/ Africn Am ([address]) Albumin/Globulin 1.9 A/G Ratio RANJEET [Mass Ratio] in ([place] Serum or Plasma [facility]) Procedure Social History Code Duration Value Status Description Data Source(s ) Smoking 11/09/2019 Never Smoker completed Never Smoker eCW1 (Nico olmos 12:00:[address] [facility]) Caffeine Use 11/04/2019 completed NEXTGEN (Davon nt Details [facility] [place]) Smoking 11/04/2019 Unknown if ever completed Unknown if ever NEXT GEN ([facility] 12:00:00 [facility] [place]) Smoking 05/11/2019 Never smoked completed Never smoked RANJEET ( [facility] 02:33:13 PM tobacco (finding) tobacco Tai EDT (finding) [facility]) Smoking 03/06/2019 smoking status completed RANJEET ( [facility] 09:37:39 AM [facility]) Smoking 12/17/2018 Never smoked completed Never smoked RANJEET ( [facility] 09:51:49 AM tobacco (finding) tobacco Tai EDT (finding) [facility]) Never Smoker completed Never Smoker eCW1 ([facility]) Smoking Unknown if ever completed Unknown if ever Nico Johnson smoked smoked [facility] Alcohol Use completed NEXTGEN (Nico Johnson [facility]) Assertion Sedentary completed Sedentary RANJEET (Moun t lifestyle lifestyle Tai (finding) ([facility]) [facility]) Assertion meals taken at completed RANJEET ( [facility] home (___ Tai times/week) [facility] ) Assertion frequent high completed RANJEET (M ount carbohydrate Tai meals [facility]) Assertion Nutritional completed Nutritional RANJEET (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) Assertion dietary excesses completed RANJEET ([facility]) Assertion Excessive dietary completed Excessive GREENWA Y ([facility] caloric intake dietary caloric [facility] n (finding) intake [facility] ([facility]) Assertion Excessive dietary completed Excessive GREENWA Y ([facility] intake of fat dietary intake Tai ([facility]) of fat [facility] ([facility]) Assertion Eats junk food ++ completed Eats junk food GRE ENWAY ([facility] (finding) ++ ([facility]) [facility]) Assertion High fat diet completed High fat diet RANJEET ([facility] ([facility]) ([facility]) Assertion Caffeine user completed Caffeine user RANJEET ([facility] ([facility]) ([facility]) [facility]) Assertion High sodium diet completed High sodium GREEN Y ([facility] ([facility]) diet ([facility]) [facility]) Assertion High sodium diet completed High sodium GREENWA Y ([facility] ([facility]) diet ([facility]) [facility]) Assertion current diet completed RANJEET (Mo unt frequency of Tai meals ___ snacks Neighbor tarrs per day [facility] [place]) Assertion current diet completed RANJEET (Mo unt frequency of Tai meals ___ per day [facility]) Assertion daily milk intake completed GREEN Y ([facility] ___ oz. per day [facility]) Assertion Finding of completed Finding of RANJEET (Moun t activity of daily activity of Tai living (finding) daily living Neighb orhood ([facility]) Assertion Exercise history completed Exercise RANJEET ([facility] finding (finding) history finding Ve rnon ([facility]) [facility]) Assertion Current drinker completed Current drinker JOSE NEGRETE ([facility] of alcohol of alcohol Tai (finding) (finding) [facility]) Assertion Current drinker completed Current drinker JOSE DAVIDNIKOLE ([facility] of alcohol of alcohol Tai (finding) (finding) [facility]) Assertion Exercise history completed Exercise RANJEET ([facility] finding (finding) history finding Ve rnon (finding) [facility]) Assertion Finding of completed Finding of RANJEET (Moun t activity of daily activity of Tai living (finding) daily living [facility] ortarrs (finding) [facility] [place]) Assertion Finding of completed Finding of RANJEET (Moun t activity of daily activity of Tai living (finding) daily living Neighb ortarrs (finding) [facility]) Vital Signs ID Date Data Source UNK Name Value Range Interpretation Code Description Data Source(s) Diastolic blood 66 mm[Hg] 66 mm[Hg] eCW1 ([facility]) Systolic blood 112 mm[Hg] 112 mm[Hg] eCW1 (Nico t pressure [facility]) Oxygen saturation 97 % 97 % eCW1 (S aint in Arterial blood [facility] by Pulse oximetry [facility]) Body temperature 98.6 [degF] 98.6 [degF] eCW1 ( [facility]) Respiratory rate 18 /min 18 /min eCW1 ( int [facility]) Heart rate 64 /min 64 /min eCW1 ([facility]) Body mass index 30.54 kg/m2 30.54 kg/m2 W1 (S aint (BMI) [Ratio] [facility]) Body weight 167 [lb_av] 167 [lb_av] eCW1 ([facility]) Body height 62 [in_i] 62 [in_i] eCW1 ([facility]) Oxygen saturation 97 % 97 % NEXTGEN ([facility] in Arterial blood [facility] by Pulse oximetry Center) Body mass index 31.31 kg/m2 Overweight 31.31 kg/m2 NEXTGEN ([facility] (BMI) [Ratio] [facility]) Respiratory rate 18 /min 18 /min NEXTGEN ([facility]) Body temperature 36.67 Lotus 36.67 Lotus NEXTGEN ([facility]) Heart rate 76 /min 76 /min NEXTGEN ([facility]) Diastolic blood 73 mm[Hg] 73 mm[Hg] NEXTGEN ( [facility]) Systolic blood 132 mm[Hg] 132 mm[Hg] NEXTGEN (S aint pressure [facility]) Body weight 77.655 kg 77.655 kg NEXTGEN ([facility]) Body height 157.48 cm 157.48 cm NEXTGEN ([facility]) Body surface area 1.81 m2 1.81 m2 NEXTGEN ([facility] Derived from [facility]) Body mass index 30.18 kg/m2 Overweight 30.18 kg/m2 NEXTGEN ([facility] (BMI) [Ratio] [facility]) Respiratory rate 18 /min 18 /min [facility] ([facility]) Body temperature 36.72 Lotus 36.72 [facility]us [facility]) Heart rate 69 /min 69 /min [facility] ([facility]) Diastolic blood 72 mm[Hg] 72 mm[Hg] NEXTGEN ( [facility] pressure [facility]) Systolic blood 119 mm[Hg] 119 mm[Hg] NEXTGEN ([facility]) Body weight 74.843 kg 74.843 kg NEXTGEN ([facility]) Body height 157.48 cm 157.48 cm [facility] ([facility]) PhenX - pain, 6 6 RANJEET ([facility] abdominal - [facility] and [facility]) Refills meds.Pt has kishor 07/23/19 ( nephr ology) Body surface area Derived from 1.76 m2 1.76 m2 RANJEET ([facility]) Refills meds.Pt has kishor 07/23/19 ( nephr ology) Body mass index (BMI) 30.0 kg/m2 30.0 kg/m2 GRE ENWAY ([place] [Ratio] [facility]) Refills meds.Pt has kishor 07/23/19 ( nephr ology) Body weight 164 [lb_av] 164 [lb_av] RANJEET ([facility]) Refills meds.Pt has kishor 07/23/19 ( nephr ology) Body height 62 [in_us] 62 [in_us] RANJEET ([facility]) Refills meds.Pt has kishor 07/23/19 ( nephr ology) Body temperature 97.8 [degF] 97.8 [degF] GREENW AY ([facility]) Refills meds.Pt has kishor 07/23/19 ( nephr ology) Heart rate 64 /min 64 /min [place] ([facility]) Refills meds.Pt has kishor 07/23/19 ( nephr ology) Diastolic blood pressure 81 mm[Hg] 81 mm[Hg] [place] ([facility]) Refills meds.Pt has kishor 07/23/19 ( nephr ology) Systolic blood pressure 124 mm[Hg] 124 mm[Hg] [facility]) Refills meds.Pt has kishor 07/23/19 ( nephr ology) PhenX - pain, abdominal - type and 0 0 [place] ([facility]) Pt follows up MRI. Body surface area Derived from 1.75 m2 1.75 m2 [place] ([facility]) Pt follows up MRI. Body mass index (BMI) 29.9 kg/m2 29.9 kg/m2 [place] ([place] [[facility]] [facility]) Pt follows up MRI. Body weight 163.5 [lb_av] 163.5 [lb_av] [place] ([facility]) Pt follows up MRI. Body height 62 [in_us] 62 [in_us] [place] ([facility]) Pt follows up MRI. Body temperature 98.1 [degF] 98.1 [degF] [place] ([facility]) Pt follows up MRI. Heart rate 76 /min 76 /min [place] ([facility]) Pt follows up MRI. Diastolic blood pressure 80 mm[Hg] 80 mm[Hg] [place] ([facility]) Pt follows up MRI. Systolic blood pressure 123 mm[Hg] 123 mm[Hg] G REENWAY ([facility]) Pt follows up MRI. Oxygen saturation in 96 % 96 % NEXT GEN ([facility] Arterial blood by Pulse [facility]) oximetry Body mass index (BMI) 29.26 kg/m2 Overweight 29.26 kg/m2 N EXTGEN ([facility] [[facility]] [facility] ) Respiratory rate 18 /min 18 /min [facility] ([facility] ) Body temperature 36.67 Lotus 36.67 Lotus [facility] ([facility] ) Heart rate 75 /min 75 /min [facility] ([facility] ) Diastolic blood pressure 74 mm[Hg] 74 mm[Hg] [facility] ([facility] ) Systolic blood pressure 117 mm[Hg] 117 mm[Hg] N EXTGEN ([facility] ) Body weight 72.575 kg 72.575 kg [facility] ([facility] ) Body height 157.48 cm 157.48 cm [facility] ([facility] ) PhenX - pain, abdominal 9 9 [facility] - type and intensity [facility]) Pt presents today to review lab results and medication refillsPt c/o hands joints pain for 2 weeks Body surface area Derived from 1.74 m2 1.74 m2 [place] ([facility]) Pt presents today to review lab results and medication refillsPt c/o hands joints pain for 2 weeks Body mass index (BMI) 29.3 kg/m2 29.3 kg/m2 [place] ([place] [[facility]] [facility] Pt presents today to review lab results and medication refillsPt c/o hands joints pain for 2 weeks Body weight 160 [lb_av] 160 [lb_av] [place] ([facility]) Pt presents today to review lab results and medication refillsPt c/o hands joints pain for 2 weeks Body height 62 [in_us] 62 [in_us] [facility] [facility] Pt presents today to review lab results and medication refillsPt c/o hands joints pain for 2 weeks Body temperature 97.5 [degF] 97.5 [degF] [facility]) Pt presents today to review lab results and medication refillsPt c/o hands joints pain for 2 weeks Heart rate 61 /min 61 /min RANJE[place] ([facility]) Pt presents today to review lab results and medication refillsPt c/o hands joints pain for 2 weeks Diastolic blood pressure 62 mm[Hg] 62 mm[Hg] R[place] ([facility]) Pt presents today to review lab results and medication refillsPt c/o hands joints pain for 2 weeks Systolic blood pressure 99 mm[Hg] 99 mm[Hg] [place] ([facility]) Pt presents today to review lab results and medication refillsPt c/o hands joints pain for 2 weeks PhenX - pain, abdominal - type and 7 7 [place] ([facility]) pt is here due to pain in the back and s houlders. pt also need rx refill Body surface area Derived from 1.75 m2 1.75 m2 [place] ([facility]) pt is here due to pain in the back and s houlders. pt also need rx refill Body mass index (BMI) 29.8 kg/m2 29.8 kg/m2 [place] ([place] [[facility]] [facility]) pt is here due to pain in the back and s houlders. pt also need rx refill Body weight 163 [lb_av] 163 [lb_av] [place] ([facility]) pt is here due to pain in the back and s houlders. pt also need rx refill Body height 62 [in_us] 62 [in_us] [place] ([facility]) pt is here due to pain in the back and s houlders. pt also need rx refill Body temperature 97.3 [degF] 97.3 [degF] [facility] ([facility]) pt is here due to pain in the back and s houlders. pt also need rx refill Respiratory rate 18 /min 18 /min [place] ([facility]) pt is here due to pain in the back and s houlders. pt also need rx refill Heart rate 60 /min 60 /min [place] ([facility]) pt is here due to pain in the back and s houlders. pt also need rx refill Diastolic blood pressure 73 mm[Hg] 73 mm[Hg] R[place]JE[place] ([facility]) pt is here due to pain in the back and s houlders. pt also need rx refill Systolic blood pressure 112 mm[Hg] 112 mm[Hg] [facility] ([facility]) pt is here due to pain in the back and s houlders. pt also need rx refill PhenX - pain, abdominal - type and 6 6 [place] ([facility]) Pt. presenting for abdominal sonogram re view Body surface area Derived from 1.74 m2 1.74 m2 [place] ([facility]) Pt. presenting for abdominal sonogram re view Body mass index (BMI) 29.4 kg/m2 29.4 kg/m2 [place] ([place] [[facility]] [facility]) Pt. presenting for abdominal sonogram re view Body weight 161 [lb_av] 161 [lb_av] R[place]JE[place] ([facility]) Pt. presenting for abdominal sonogram re view Body height 62 [in_us] 62 [in_us] R[place]JE[place] ([facility]) Pt. presenting for abdominal sonogram re view Body temperature 97.4 [degF] 97.4 [degF] [place] ([facility]) Pt. presenting for abdominal sonogram re view Heart rate rhythm 1 1 [place] ([facility]) Pt. presenting for abdominal sonogram re view Heart rate 66 /min 66 /min R[place] ([facility]) Pt. presenting for abdominal sonogram re view Diastolic blood pressure 86 mm[Hg] 86 mm[Hg] [place] ([facility]) Pt. presenting for abdominal sonogram re view Systolic blood pressure 136 mm[Hg] 136 mm[Hg] [facility] ([facility]) Pt. presenting for abdominal sonogram re view PhenX - pain, abdominal - type and 0 0 [place] ([facility]) Paatient is here for an abdominal sonogr am. Body height 62 [in_us] 62 [in_us] [place] ([facility]) Paatient is here for an abdominal sonogr am. PhenX - pain, abdominal - type and 8 8 [place] ([facility]) Pt is here for 2 days of lower back pain Body surface area Derived from 1.74 m2 1.74 m2 [place] ([facility]) Pt is here for 2 days of lower back pain Body mass index (BMI) 29.3 kg/m2 29.3 kg/m2 [place] ([place] [[facility]] [facility]) Pt is here for 2 days of lower back pain Body weight 160 [lb_av] 160 [lb_av] [place] ([facility]) Pt is here for 2 days of lower back pain Body height 62 [in_us] 62 [in_us] [place] ([facility]) Pt is here for 2 days of lower back pain Body temperature 97.5 [degF] 97.5 [degF] [facility] ([facility]) Pt is here for 2 days of lower back pain Heart rate 57 /min 57 /min R[place]JE[place] ([facility]) Pt is here for 2 days of lower back pain Diastolic blood pressure 78 mm[Hg] 78 mm[Hg] [place] ([facility]) Pt is here for 2 days of lower back pain Systolic blood pressure 139 mm[Hg] 139 mm[Hg] [place] ([facility]) Pt is here for 2 days of lower back pain PhenX - pain, abdominal - type and 0 0 [place] ([facility]) Pt is here for lab results. Body surface area Derived from 1.74 m2 1.74 m2 [place] ([facility]) Pt is here for lab results. Body mass index (BMI) 29.3 kg/m2 29.3 kg/m2 [place] ([place] [[facility]] [facility]) Pt is here for lab results. Body weight 160 [lb_av] 160 [lb_av] [place] ([facility]) Pt is here for lab results. Body height 62 [in_us] 62 [in_us] [place] ([facility]) Pt is here for lab results. Body temperature 98 [degF] 98 [degF] [place] ([facility]) Pt is here for lab results. Heart rate 71 /min 71 /min [place] ([facility]) Pt is here for lab results. Diastolic blood pressure 75 mm[Hg] 75 mm[Hg] [place] ([facility]) Pt is here for lab results. Systolic blood pressure 135 mm[Hg] 135 mm[Hg] [place] ([facility]) Pt is here for lab results. Body surface area Derived 1.73 m2 1.73 m2 [place] ([place] [facility]) Body mass index (BMI) 29.1 kg/m2 29.1 kg/m2 [facility] ([place] [[facility]] [facility]) Body weight 159 [lb_av] 159 [lb_av] R[place]JE[place] ([facility]) Body height 62 [in_us] 62 [in_us] R[place] ([facility]) PhenX - pain, abdominal - 0 0 [place] ([place] type and intensity protocol [facility]) Pt presents today for follow up and medi cation refillsPt c/o hair loss for 3 months Body surface area Derived from 1.74 m2 1.74 m2 [place] ([facility]) Pt presents today for follow up and medi cation refillsPt c/o hair loss for 3 months Body mass index (BMI) 29.3 kg/m2 29.3 kg/m2 [facility] ([place] [[facility]] [facility]) Pt presents today for follow up and medi cation refillsPt c/o hair loss for 3 months Body weight 160 [lb_av] 160 [lb_av] [place] ([facility]) Pt presents today for follow up and medi cation refillsPt c/o hair loss for 3 months Body height 62 [in_us] 62 [in_us] [place] ([facility]) Pt presents today for follow up and medi cation refillsPt c/o hair loss for 3 months Body temperature 97.8 [degF] 97.8 [degF] [facility] ([facility]) Pt presents today for follow up and medi cation refillsPt c/o hair loss for 3 months Heart rate 60 /min 60 /min [place] ([facility]) Pt presents today for follow up and medi cation refillsPt c/o hair loss for 3 months Diastolic blood pressure 69 mm[Hg] 69 mm[Hg] [place] ([facility]) Pt presents today for follow up and medi cation refillsPt c/o hair loss for 3 months Systolic blood pressure 112 mm[Hg] 112 mm[Hg] [place] ([facility]) Pt presents today for follow up and medi cation refillsPt c/o hair loss for 3 months Respiratory rate 18 /min 18 /min NEXTGEN ([facility]) Body temperature 36.17 Lotus 36.17 Lotus [facility] ([facility]) [facility] 66 /min 66 /[facility] Diastolic blood pressure 78 mm[Hg] 78 mm[Hg] [facility]) Systolic blood pressure 126 mm[Hg] 126 mm[Hg] N EXTGEN ([facility]) PhenX - pain, abdominal - 0 0 [place] ([place] type and intensity protocol [facility]) Pt. presenting for lab review and referr al. Body surface area Derived from 1.74 m2 1.74 m2 [place] ([facility]) Pt. presenting for lab review and referr al. Body mass index (BMI) 29.3 kg/m2 29.3 kg/m2 [place] ([place] [facility] Pt. presenting for lab review and referr al. Body weight 160 [lb_av] 160 [lb_av] [place] ([facility]) Pt. presenting for lab review and referr al. Body height 62 [in_us] 62 [in_us] [place] ([facility]) Pt. presenting for lab review and referr al. Body temperature 97.7 [degF] 97.7 [degF] [facility] ([facility]) Pt. presenting for lab review and referr al. Heart rate 62 /min 62 /min [place] ([facility]) Pt. presenting for lab review and referr al. Diastolic blood pressure 69 mm[Hg] 69 mm[Hg] [place] ([facility]) Pt. presenting for lab review and referr al. Systolic blood pressure 119 mm[Hg] 119 mm[Hg] [facility]) Pt. presenting for lab review and referr al. PhenX - pain, abdominal - type and 0 0 [place] ([facility]) Pt is here for 4 month of eyes problem. Body surface area Derived from 1.74 m2 1.74 m2 [place] ([facility]) Pt is here for 4 month of eyes problem. Body mass index (BMI) 29.4 kg/m2 29.4 kg/m2 [facility] ([place] [[facility]] [facility]) Pt is here for 4 month of eyes problem. Body weight 161 [lb_av] 161 [lb_av] [place] [facility] Pt is here for 4 month of eyes problem. Body height 62 [in_us] 62 [in_us] [place] ([facility]) Pt is here for 4 month of eyes problem. Body temperature 97.6 [degF] 97.6 [degF] [facility] ([facility]) Pt is here for 4 month of eyes problem. Heart rate 69 /min 69 /min [place] ([facility]) Pt is here for 4 month of eyes problem. Diastolic blood pressure 80 mm[Hg] 80 mm[Hg] [place] ([facility]) Pt is here for 4 month of eyes problem. Systolic blood pressure 131 mm[Hg] 131 mm[Hg] [facility]) Pt is here for 4 month of eyes problem. Patient Treatment Plan of Care Planned Activity Planned Date Details Description Data Source (s) Omeprazole 40 MG Delayed 08/25/2019 [place] ([place] [facility] T[facility] 8 Hour Arthritis 08/03/2019 [place] ([place] Pain [facility] Diclofenac Sodium 0.01 07/20/[address] ([place] MG/MG Topical Gel 12:00:00 AM [facility]) Omeprazole 40 MG Delayed 07/20/2019 [place] ([place] Release Oral Capsule 12:00:00 AM [facility]) Amlodipine 10 MG / 07/20/2019 [place] ([place] Benazepril hydrochloride 12:00:[address] [facility] 20 MG Oral Capsule [place]) Aspirin 81 MG Delayed 07/20/2019 [place] ([place] Release Oral Tablet 12:00:00 AM [facility]) atorvastatin 40 MG Oral 07/20/2019 [place] ([place] Tablet 12:00:00 AM [facility]) Tylenol 8 Hour Arthritis 03/25/2019 [place] ([place] Pain 650MG Oral Tablet 12:00:00 AM [facility] Extended Release [place]) atorvastatin 40 MG Oral 03/25/2019 [place] ([place] Tablet 12:00:00 AM [facility]) Aspirin 81 MG Delayed 03/25/2019 [place] ([place] Release Oral Tablet 12:00:00 AM [facility]) Amlodipine 10 MG / 03/25/2019 [place] ([place] Benazepril hydrochloride 12:00:00 AM [facility] 20 MG Oral Capsule [place]) Omeprazole 40 MG Delayed 03/25/2019 [place] ([place] Release Oral Capsule 12:00:00 AM [facility]) Omeprazole 40 MG Delayed 02/25/2019 [place] ([place] Release Oral Capsule 12:00:00 AM [facility]) Diclofenac Sodium 0.01 02/03/[address] ([place] MG/MG Topical Gel 12:00:00 AM [facility]) Omeprazole 40 MG Delayed 01/27/2019 [place] ([place] Release Oral Capsule 12:00:00 AM [facility]) Aspirin 81 MG Delayed 01/27/2019 [place] ([place] Release Oral Tablet 12:00:00 AM [facility]) Amlodipine 10 MG / 01/27/2019 R[place]JEET ([place] Benazepril hydrochloride 12:00:00 AM [facility] 20 MG Oral Capsule [place]) atorvastatin 40 MG Oral 01/27/2019 [place] ([place] Tablet 12:00:00 AM [facility]) meloxicam 15 MG Oral 01/02/2019 [place] ([place] Tablet 12:00:00 AM [facility]) Systane 0.4-0.3% 12/19/2018 [place] ([facility] 12:00:00 AM [facility]) Amoxicillin 875 MG Oral 12/18/2016 [place] ([place] Tablet 12:00:00 AM [facility]) Acetaminophen 500 MG 12/18/2016 [place] ([place] Oral Tablet 12:00:00 AM [facility])
[2019-11-24] MEDS ORDERED: MIDAZOLAM HCL 2 MG/2 ML SINGLE DOSE VIAL ONE (14:36)
--- NOTE | 2019-11-24 14:50 | OP ---
Operative Note - Note: Operative Date: 11/24/19 Pre-Operative Diagnosis: lt. renal stone, micturation disorder, hematuria Operation: lt. eswl Findings: lt. renal stone Post-Operative Diagnosis: Same as Pre-op Surgeon: Jose Elias Merida Anesthesia: General Specimens Removed: none Estimated Blood Loss (mls): 0 Instrument used (Debridements only): 0 Drains & Tubes with Location: 0 Drains, Volume Out (mls): 0 Blood Volume Replaced (mls): 0 Fluid Volume Replaced (mls): 0 Operative Report Dictated: Yes
--- NOTE | 2019-11-24 14:53 | HP ---
DATE OF ADMISSION: 11/24/2019 HISTORY: A 74-year-old female with history of bilateral flank pain more on the left than the right. The patient also complains of some urgency incontinence, has had history of urinary tract infections in the past. The patient is G2, P2. ALLERGIES: She denies any allergies. PAST MEDICAL HISTORY: She does have high blood pressure and hyperlipidemia. She does complain of urinary frequency, urgency and intermittent gross hematuria. A cystoscopy revealed no lesions in the past. The patient had a CAT scan of the kidneys which revealed bilateral renal stones. An ultrasound in the office also revealed bilateral renal stones with slight right hydronephrosis. Her urine was positive for blood. She did have atrophic vaginitis with a positive Brent test. 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 PHYSICAL EXAMINATION: Presently the patient has a soft abdomen. She has tenderness in the left flank with radiation to the left lower quadrant. IMPRESSION: Left colic with micturition disorder. Plan is to perform a left extracorporeal shock wave lithotripsy. This was explained to patient and she agrees. Magnus [id number]
[2019-11-24] MEDS ORDERED: ceFAZolin SODIUM 1 GM VIAL IVPB ONE (14:55)
--- NOTE | 2019-11-24 15:41 | OP ---
DATE OF OPERATION: 11/24/2019 PREOPERATIVE DIAGNOSIS: Left renal colic, microscopic hematuria, micturition disorder. POSTOPERATIVE DIAGNOSIS: Left renal colic, microscopic hematuria, micturition disorder. OPERATIVE PROCEDURE: Left extracorporeal shock wave lithotripsy. ANESTHESIA: General. PROCEDURE IN DETAIL: Under above-stated anesthesia patient was prepped and draped in the usual sterile manner. She was placed in the supine position. Localization of the stone was performed using ultrasound and overhead fluoroscopy. After the stone was isolated in the left renal pelvis the patient received 1500 shocks at an energy of 18 and 1000 shocks at an energy of 20. She had a benign and uneventful postop course. She tolerated the procedure well. She returned to the recovery room in good condition. Magnus [id number]
[2019-11-24 18:02] VITALS: BP 133/87; PULSE 70; TEMP 97.4
== END 2019-11-24 17:45 | disposition home or self-care (01) ==
LOC: JASU-SURG 04:29
PROVIDERS: ATTEND Urology
PROC: 0TF3XZZ Fragmentation in Right Kidney Pelvis, External Approach (ICD-10-PCS; principal; 2019-11-24 14:00)
DX: N20.0 Calculus of kidney (principal); R31.29 Other microscopic hematuria; R39.198 Other difficulties with micturition